=== PATIENT | male | born 1960 | race Caucasian/White ===

== ENCOUNTER 2022-04-23 11:57 | Inpatient (IN) | payer SELFPAY ==
[2022-04-23] VITALS (14 sets, daily range): BP systolic 88–139; BP diastolic 46–86; PULSE 72–100; RESP 16–20; TEMP 36.6–37.1; O2SAT 93–98; BMI 30.1; BMI 30.9
--- NOTE | 2022-04-23 12:29 | CT_ITS ---
PROCEDURE INFORMATION: Exam: CTA Abdomen and Pelvis With Contrast Exam date and time: 04/23/2022 1:30 PM Age: 62 years old Clinical indication: Abdominal pain; Patient HX: Epigastric pain sudden onset, nausea; Additional info: Epigastric/back pain, severe, sudden onset TECHNIQUE: Imaging protocol: Computed tomographic angiography of the abdomen and pelvis with contrast. 3D rendering (Not supervised by radiologist): MIP and/or 3D reconstructed images were created by the technologist. Radiation optimization: All CT scans at this facility use at least one of these dose optimization techniques: automated exposure control; mA and/or kV adjustment per patient size (includes targeted exams where dose is matched to clinical indication); or iterative reconstruction. Contrast material: ISOVUE 370; Contrast volume: 75 ml; Contrast route: INTRAVENOUS (IV); COMPARISON: No relevant prior studies available. FINDINGS: Lungs: Lung bases are unremarkable. Aorta: The aorta demonstrates moderate atherosclerotic calcification. Celiac trunk and mesenteric arteries: No occlusion or significant stenosis. Renal arteries: No occlusion or significant stenosis. Right iliac arteries: No occlusion or significant stenosis. Left iliac arteries: No occlusion or significant stenosis. Liver: There is a 7 cm right hepatic lobe cyst. Gallbladder and bile ducts: Gallbladder is distended without radiopaque cholelithiasis. No biliary ductal dilation. Pancreas: There is diffuse peripancreatic stranding. Mild amount of fluid is tracking along the anterior pararenal spaces bilaterally. No discrete peripancreatic collection. Spleen: No splenomegaly. Adrenal glands: The adrenal glands are normal. Kidneys and ureters: Nephrograms are symmetric. No nephrolithiasis or hydroureteronephrosis on either side. No solid lesions Stomach and bowel: No bowel wall thickening or distention. Appendix: A normal appendix is not well visualized. However, no evidence of inflammatory changes in the right lower quadrant to suggest acute appendicitis. Intraperitoneal space: Mild amount of free fluid tracking along the anterior pararenal spaces. Lymph nodes: No evidence of retroperitoneal or mesenteric lymphadenopathy. Urinary bladder: Urinary bladder is unremarkable. Reproductive: Prostate is unremarkable. Bones/joints: No acute fracture. Soft tissues: Unremarkable. IMPRESSION: Acute edematous interstitial pancreatitis
--- NOTE | 2022-04-23 12:32 | HMH.EDGENADL ---
Discharge Plan Disposition Patient Disposition: Admitted As Inpatient Condition: Good Clinical Impressions Clinical Impression: Acute alcoholic pancreatitis Qualifiers: Acute pancreatitis complication: no infection or necrosis Qualified Code(s): K85.20 - Alcohol induced acute pancreatitis without necrosis or infection Discharge ED Provider: Brianna Hale General Adult HPI General Chief complaint: Abdominal Pain Stated complaint: abd pain Time Seen by Provider: 04/23/22 12:12 Mode of Arrival: Ambulatory Source of Information: Patient and Spouse Limitations: No Limitations Description of Symptoms (Recalled from ER Triage Doc. by RN): pt comes in with c/o abdominal pain that began this morning. pt states that he drank his cofee around 0700 and then began having the pain. associated nausea, no v/d. pt states he drinks a few beers daily. not tender to palpation. History of Present Illness HPI narrative: This patient is a 62-year-old male with a history of daily alcohol use and hypertension presented to the emergency department for evaluation of epigastric abdominal pain. He states that he drinks morning coffee around 7:00 this morning and began having pain. It is severe, constant, and nothing makes it better or worse. It has gotten worse since then. He denies any vomiting or diarrhea, but he does admit to nausea. He denies any recent blood in his stools, dark tarry stools, or other concerns. He was well prior to this. He denies experiencing pain like this in the past. He denies any prior abdominal surgeries. Related Data Home Medications Medication Instructions Recorded Confirmed aspirin 81 mg tablet 81 mg PO DAILY heart health 04/23/22 04/23/22 atenolol 25 mg tablet 25 mg PO DAILY High blood pressure 04/23/22 04/23/22 lisinopril 10 mg tablet 10 mg PO DAILY High blood pressure 04/23/22 04/23/22 Allergies Allergy/AdvReac Type Severity Reaction Status Date / Time No Known Allergies Allergy Verified 04/23/22 12:23 [facility] Disclaimer: The information contained in this section may have been updated after the patient was seen, as this information can be updated by other users. Social History Smoking Status: Current every day smoker alcohol intake: current current occupational status: employed Travel in the last 8 weeks: None ROS Obtained: Yes All systems reviewed & no additional complaints except as documented 14 point review of systems obtained and negative except as mentioned in HPI. Physical Exam General General appearance: alert Comment: Uncomfortable appearing Head Head exam: atraumatic and normocephalic Eye Eye exam: Present normal appearance, PERRL and EOMI ENT ENT exam: Present normal exam, normal oropharynx and mucous membranes moist Neck Neck exam: Present normal inspection and full ROM Chest Chest inspection: Present normal inspection and symmetric chest wall rise; Absent tenderness Respiratory Respiratory exam: Present normal lung sounds bilaterally; Absent respiratory distress or wheezes Cardiovascular Cardiovascular exam: Present regular rate and normal rhythm Abdominal Exam Abdominal exam: Present soft, tenderness (Epigastric) and guarding; Absent distention or rebound Extremities Exam Extremities exam: Present normal inspection and full ROM Back Exam Back exam: Present normal inspection and full ROM; Absent tenderness Neurological Exam Neurological exam: Present alert and oriented X3 Psychiatric Psychiatric exam: Present normal affect and normal mood Skin Skin exam: Present warm and dry Medical Decision Making Medical Records Medical records reviewed: Yes I reviewed the patient's medical records. Abhijit Inquiry Pt receiving controlled substance: No Vital Signs: 04/23/22 12:14 04/23/22 12:30 04/23/22 13:00 Temperature 97.9 F Temperature Source Oral Pulse Rate 75 76 Pulse Rate [Left Radial] 77 Respirato
[2022-04-23 12:38] LABS: Basophils % 0.3 % (0.1-2.0); Eosinophils # 0.2 K/mm3 (0.0-0.4); Eosinophils % 1.1 % (0.1-12.0); Hematocrit 46.8 % (42.0-52.0); Lymphocytes # 0.8 K/mm3 (0.7-4.5); Lymphocytes % 4.9 % (10-50); Mean Corpuscular HGB Conc 34.1 g/dL (31.8-35.4); Mean Corpuscular Hemoglobin 31.9 pg (27.0-31.2); Mean Corpuscular Volume 93.4 fl (80-94); Mean Platelet Volume 9.3 fl (7.4-10.4); Monocytes # 0.5 K/mm3 (0.1-1.0); Monocytes % 3.2 % (1.7-9.3); Neutrophils # 14.2 K/mm3 (1.8-7.8); Neutrophils % 90.5 % (37.0-80.0); Platelet Count 271 K/mm3 (142-424); Red Blood Count 5.01 M/mm3 (4.60-6.20); Red Cell Distribution Width 12.9 % (11.5-17.5); White Blood Count 15.6 K/mm3 (4.8-10.8)
[2022-04-23 12:41] LABS: Chloride 103 mmol/L (98-107); MANUAL DIFFERENTIAL MANUAL DIFFERENTIAL (MANUAL DIFF); Sodium 139 mmol/L (136-145)
[2022-04-23 12:42] LABS: Potassium 4.2 mmoL/L (3.5-5.1)
[2022-04-23 12:44] LABS: Alanine Aminotransferase 123 U/L (12-78); Albumin Level 4.5 g/dl (3.5-5.0); Albumin/Globulin Ratio 1.4 (1.1-1.8); Alkaline Phosphatase 80 U/L (38-126); Anion Gap 12.2 mEq/L (5-15); Aspartate Amino Transferase 214 U/L (17-59); Bilirubin,Total 0.7 mg/dl (0.2-1.3); Blood Urea Nitrogen 9 mg/dl (9-20); Calcium 9.1 mg/dl (8.4-10.2); Carbon Dioxide 28 mmol/L (22.0-30.0); Creatinine Clearance Estimated 101 mL/min (50-200); Estimated Glomerular Filt Rate 114 ml/min (>60); GFR (African American) 137 ML/MIN (>60); Globulin 3.3 g/dL (1.3-3.2); Glucose 146 mg/dl (74-100); Total Protein,Serum 7.8 g/dl (6.3-8.2)
[2022-04-23 12:45] LABS: Lactic Acid 1.2 mmol/L (0.7-2.1)
[2022-04-23 12:54] LABS: Lymphocytes % 6 % (10-50); Neutrophils % 94 % (42-76); Platelet Estimate Normal; RBC Morphology Normal; Total Cells Counted 100
--- NOTE | 2022-04-23 13:48 | PC.NURSE ---
Latoya, YANN rounding on patient at this time. Pt given some ice chips
[2022-04-23 13:59] LABS: Lipase 10790 U/L (23-300)
--- NOTE | 2022-04-23 14:58 | PC.NURSE ---
YANN Klein rounding on patient, no needs at this time. Family at BS
--- NOTE | 2022-04-23 16:18 | EXP.HP ---
History of Present Illness *Admission Date: 04/23/22 *Reason for visit:: Pancreatitis *History of present illness: 62-year-old man who presents to the emergency department due to 3 days of progressively worsening abdominal pain. He is alcoholic and drinks daily for years he has been trying to quit for the last few weeks. Has reduced his drinking to maybe a few drinks every few days. 3 days ago abdominal pain thought it was GERD, some nausea. This morning it was severe in his abdomen. Not able to tolerate p.o. intake. Denies withdrawals, no shakes. Currently asymptomatic from an alcohol withdrawal standpoint. [facility] Disclaimer: The information contained in this section may have been updated after the patient was seen, as this information can be updated by other users. Social History Smoking Status: Current every day smoker alcohol intake: current current occupational status: employed Travel in the last 8 weeks: None Review of Systems Review of Systems Review of systems:: pertinent systems reviewed and negative unless documented below Constitutional Constitutional: Reports system reviewed and no additional complaints, except as documented ENT Ears, Nose, Mouth, and Throat: Reports system reviewed and no additional complaints, except as documented *Cardiovascular Cardiovascular: Reports system reviewed and no additional complaints, except as documented *Respiratory Respiratory: Reports system reviewed and no additional complaints, except as documented *Gastrointestinal Gastrointestinal: Reports system reviewed and no additional complaints, except as documented *Genitourinary Genitourinary: Reports system reviewed and no additional complaints, except as documented *Musculoskeletal Musculoskeletal: Reports system reviewed and no additional complaints, except as documented *Neurologic Neurologic: Reports system reviewed and no additional complaints, except as documented and Denies tremor(s) Meds Home Medications and Allergies Home Medications Medication Instructions Recorded Confirmed Type aspirin 81 mg tablet 81 mg PO DAILY heart health 04/23/22 04/23/22 History atenolol 25 mg tablet 25 mg PO DAILY High blood pressure 04/23/22 04/23/22 History lisinopril 10 mg tablet 10 mg PO DAILY High blood pressure 04/23/22 04/23/22 History New Prescriptions to Start Prescriptions: Allergies Allergy/AdvReac Type Severity Reaction Status Date / Time No Known Allergies Allergy Verified 04/23/22 12:23 Exam Data for Last 24 hours Vital signs and Labs for Last 24 Hours: Temp Pulse Resp BP Pulse Ox 97.9 F 82 18 88/46 L 94 L 04/23/22 12:14 04/23/22 16:00 04/23/22 15:30 04/23/22 16:00 04/23/22 16:00 Laboratory Results - last 24 hr 04/23/22 12:10: WBC 15.6 H, RBC 5.01, Hgb 16.0, Hct 46.8, MCV 93.4, MCH 31.9 H, MCHC 34.1, RDW 12.9, Plt Count 271, MPV 9.3, Neut % (Auto) 90.5 H, Lymph % (Auto) 4.9 L, [place] % (Auto) 3.2, Eos % (Auto) 1.1, Baso % (Auto) 0.3, Neut # (Auto) 14.2 H, Lymph # (Auto) 0.8, [place] # (Auto) 0.5, Eos # (Auto) 0.2, Baso # (Auto) 0.0, Total Counted 100, Neutrophils % (Manual) 94 H, Lymphocytes % (Manual) 6 L, Platelet Estimate Normal, RBC Morphology Normal 04/23/22 12:10: Sodium 139, Potassium 4.2, Chloride 103, Carbon Dioxide 28, Anion Gap 12.2, BUN 9, Creatinine 0.70, Estimated Creat Clear 101, Estimated GFR 114, Est GFR ( Amer) 137, Glucose 146 H, Calcium 9.1, Total Bilirubin 0.7, AST 214 H, ALT 123 H, Alkaline Phosphatase 80, Total Protein 7.8, Albumin 4.5, Globulin 3.3 H, Albumin/Globulin Ratio 1.4, Lipase 01202 H 04/23/22 12:10: Lactate 1.2 I & O for Last 24 hours: Intake & Output 04/20/22 04/21/22 04/22/22 04/23/22 23:59 23:59 23:59 23:59 Weight 95.254 kg Constitutional Constitutional: no acute distress, chronically ill appearing and cooperative *Routine HEENT Exam Head: Present normocephalic Eye: Present EOM
[2022-04-23 16:38] LABS: Coronavirus 19, PCR Not Detected (NotDetected); Influenza A, PCR Not Detected (NotDetected); Influenza B, PCR Not Detected (NotDetected)
--- NOTE | 2022-04-23 17:09 | PC.NURSE ---
Dr. Bell, Hospitalist at
--- NOTE | 2022-04-23 17:15 | PC.NURSE ---
attempted to call report to 2nd floor, was told nurse will return the call
--- NOTE | 2022-04-23 17:18 | PC.NURSE ---
report called to sugar michelle on second floor
--- NOTE | 2022-04-23 18:19 | PC.NURSE ---
arrived to floor by wheelchair from ED
[2022-04-24] VITALS (9 sets, daily range): BP systolic 124–146; BP diastolic 80–88; PULSE 89–105; RESP 17–20; TEMP 36.8–37; O2SAT 92–95; BMI 30.8
[2022-04-24 03:05] LABS: Microscopic, Urine URINE MICROSCOPIC (MICROSCOPIC)
[2022-04-24 03:11] LABS: Appearance,Urine CLEAR (Clear); Bilirubin,Urine Negative (Negative); Blood, Urine Negative (Negative); Glucose,Urine (UA) Negative (Negative); Ketones,Urine TRACE (Negative); Leukocyte Esterase,Urine Negative (Negative); Nitrate,Urine Negative (Negative); Protein,Urine Negative (Negative); Specific Gravity, Urine 1.015 (1.005-1.030); Urobilinogen,Urine 0.2 EU/dl (0.2)
[2022-04-24 03:13] LABS: Color,Urine Dark Yellow (Yellow)
[2022-04-24 03:36] LABS: Bacteria,Urine Trace /lpf; Mucus,Urine 1+ /lpf; WBC,Urine Occasional #/hpf (0-3)
--- NOTE | 2022-04-24 03:44 | PC.NURSE ---
PATIENT HAS RECEIVED MORHINE 4 MG IVP TWICE FOR EPIGASTRIC PAIN 7-11/27. NPO BOWEL SOUNDS VERY HYPOACTIVE.
[2022-04-24 07:20] LABS: Chloride 101 mmol/L (98-107); Sodium 133 mmol/L (136-145)
[2022-04-24 07:21] LABS: Potassium 3.7 mmoL/L (3.5-5.1)
[2022-04-24 07:23] LABS: Alanine Aminotransferase 67 U/L (12-78); Albumin Level 3.8 g/dl (3.5-5.0); Albumin/Globulin Ratio 1.4 (1.1-1.8); Alkaline Phosphatase 66 U/L (38-126); Anion Gap 10.7 mEq/L (5-15); Aspartate Amino Transferase 53 U/L (17-59); Bilirubin,Total 0.6 mg/dl (0.2-1.3); Blood Urea Nitrogen 8 mg/dl (9-20); Carbon Dioxide 25 mmol/L (22.0-30.0); Creatinine Clearance Estimated 103 mL/min (50-200); Estimated Glomerular Filt Rate 136 ml/min (>60); GFR (African American) 164 ML/MIN (>60); Globulin 2.7 g/dL (1.3-3.2); Phosphorous 3.2 mg/dl (2.5-4.5); Total Protein,Serum 6.5 g/dl (6.3-8.2)
[2022-04-24 07:24] LABS: Basophils % 0.2 % (0.1-2.0); Calcium 8.6 mg/dl (8.4-10.2); Eosinophils # 0.1 K/mm3 (0.0-0.4); Eosinophils % 0.5 % (0.1-12.0); Glucose 106 mg/dl (74-100); Hematocrit 42.9 % (42.0-52.0); Lymphocytes # 1.3 K/mm3 (0.7-4.5); Lymphocytes % 7.8 % (10-50); Magnesium 1.8 mg/dl (1.6-2.3); Mean Corpuscular HGB Conc 32.7 g/dL (31.8-35.4); Mean Corpuscular Volume 94.9 fl (80-94); Mean Platelet Volume 8.8 fl (7.4-10.4); Monocytes # 0.9 K/mm3 (0.1-1.0); Monocytes % 5.3 % (1.7-9.3); Neutrophils # 13.9 K/mm3 (1.8-7.8); Neutrophils % 86.2 % (37.0-80.0); Platelet Count 237 K/mm3 (142-424); Red Blood Count 4.52 M/mm3 (4.60-6.20); Red Cell Distribution Width 12.9 % (11.5-17.5); White Blood Count 16.2 K/mm3 (4.8-10.8)
[2022-04-24 07:26] LABS: MANUAL DIFFERENTIAL MANUAL DIFFERENTIAL (MANUAL DIFF)
[2022-04-24 08:53] LABS: Lymphocytes % 12 % (10-50); Monocytes % 1 % (2-9); Neutrophils % 87 % (42-76); Platelet Estimate Normal; RBC Morphology Normal; Total Cells Counted 100
--- NOTE | 2022-04-24 10:04 | SW/DCPLANNER ---
I received a referral on this patient regarding resources. I did speak with patient about drug/alcohol inpatient and outpatient resources. Patient stated that he is not interested in any resources at this time. I will follow up with patient prior to discharge to assist with any questions/needs. Discharge date is unknown at this time.
--- NOTE | 2022-04-24 11:55 | HMH.PHAINT1 ---
Pharmacy Intervention Comments: Home medication list verified via patient/family interview and outside pharmacy. -Radha Flynn, PharmD Candidate 2022
--- NOTE | 2022-04-24 14:17 | PC.NURSE ---
When attempt to administer lisinopril was made patient stated that he already took the lisinopril and atenolol that his brought from home at 1030 this morning. Patient given option to label home medication or take hospital supply in the future. Patient states he will take hospital supply. Education provided regarding importance of not taking home medications without notifying staff and proper labeling. Patient and state understanding.
--- NOTE | 2022-04-24 17:32 | EXP.ACUTE.PN ---
Subjective *Date: 04/24/22 *Time: 18:00 Interval history: No issues overnight. We will try clear liquids today. Some abdominal pain and nausea but otherwise well controlled. No concerns or complaints Medical Exam Vital signs and Labs for Last 24 Hours: Vital Signs Temp Pulse Pulse Resp BP BP Pulse Ox 04/24/22 16:00 90 04/24/22 15:38 98.6 F 92 H 18 137/85 95 04/24/22 12:00 100 H 04/24/22 11:44 98.3 F 92 H 18 139/80 93 L 04/24/22 08:00 90 04/24/22 08:00 98.3 F 100 H 17 142/86 H 92 L 04/24/22 04:00 98.3 F 100 H 18 146/88 H 93 L 04/24/22 04:00 100 H 04/24/22 03:39 97 H 04/23/22 20:00 100 H 04/24/22 00:00 98.6 F 105 H 20 145/88 H 92 L 04/23/22 20:00 93 L 04/23/22 20:00 98.7 F 99 H 18 139/85 93 L 04/23/22 18:26 98.0 F 80 16 116/67 93 L 04/23/22 18:20 98.2 F 88 16 108/64 L Intake and Output 04/24/22 04/24/22 04/24/22 07:59 15:59 23:59 Intake Total 1242 / 3282 120 / 3282 1920 / 3282 Output Total 1100 / 2600 1500 / 2600 0 / 2600 Balance 142 / 682 -1380 / 682 1920 / 682 Intake: Intake, Oral Amount 120 / 590 470 / 590 Intake, Total IV Amount 1242 / 2692 1450 / 2692 Ringers Solution,Lactated 1,000 1242 / 2692 1450 / 2692 ml @ 125 mls/hr IV .Q8H [facility] Rx #:[id number] Output: Output, Urine Amount 1100 / 2600 1500 / 2600 0 / 2600 Other: Number of Unmeasured Voids 1 1 Weight 97.778 kg Patient Weight 04/24/22 23:59 Weight 97.778 kg Laboratory Results - last 24 hr 04/23/22 16:30: SARS-CoV-2 (PCR) Not detected, Influenza A Untype (PCR) Not detected, Influenza Type B (PCR) Not detected 04/24/22 00:51: Urine Color Dark yellow, Urine Appearance Clear, Urine pH 6.0, Ur Specific Novice 1.015, Urine Protein Negative, Urine Glucose (UA) Negative, Urine Ketones Trace, Urine Blood Negative, Urine Nitrate Negative, Urine Bilirubin Negative, Urine Urobilinogen 0.2, Ur Leukocyte Esterase Negative, Urine WBC Occasional, Urine Bacteria Trace, Urine Mucus 1+ 04/24/22 06:50: WBC 16.2 H, RBC 4.52 L, Hgb 14.0 L D, Hct 42.9, MCV 94.9 H, MCH 31.0, MCHC 32.7, RDW 12.9, Plt Count 237, MPV 8.8, Neut % (Auto) 86.2 H, Lymph % (Auto) 7.8 L, [place] % (Auto) 5.3, Eos % (Auto) 0.5, Baso % (Auto) 0.2, Neut # (Auto) 13.9 H, Lymph # (Auto) 1.3, [place] # (Auto) 0.9, Eos # (Auto) 0.1, Baso # (Auto) 0.0, Total Counted 100, Neutrophils % (Manual) 87 H, Lymphocytes % (Manual) 12, Monocytes % (Manual) 1 L, Platelet Estimate Normal, RBC Morphology Normal 04/24/22 06:50: Sodium 133 L, Potassium 3.7, Chloride 101, Carbon Dioxide 25, Anion Gap 10.7, BUN 8 L, Creatinine 0.60 L, Estimated Creat Clear 103, Estimated GFR 136, Est GFR ( Amer) 164, Glucose 106 H D, Calcium 8.6, Phosphorus 3.2, Magnesium 1.8, Total Bilirubin 0.6, AST 53 D, ALT 67 D, Alkaline Phosphatase 66, Total Protein 6.5, Albumin 3.8 D, Globulin 2.7, Albumin/Globulin Ratio 1.4 I & O for Labs for Last 24 Hours: Intake & Output 04/21/22 04/22/22 04/23/22 04/24/22 23:59 23:59 23:59 23:59 Intake Total 3282 / 3282 Output Total 2600 / 2600 Balance 682 / 682 Weight 97.579 kg 97.778 kg Head: Present atraumatic and normocephalic Neck: Present normal inspection and full ROM GI: Present soft and tenderness Rectal (male): Present deferred (male): Present deferred Extremities: Present normal inspection Skin: Present intact and dry Assessment and Plan *Assessment and plan (1) Acute alcoholic pancreatitis: Status: Acute Qualifiers: Acute pancreatitis complication: no infection or necrosis Qualified Code(s): K85.20 - Alcohol induced acute pancreatitis without necrosis or infection Category: Medical Code(s): K85.20 - Alcohol induced acute pancreatitis without necrosis or infection (2) HTN (hypertension): Status: Acute Category: Medical Code(s): I10 - Essential (primary) hypertension (3
--- NOTE | 2022-04-24 18:37 | PC.NURSE ---
Pt up ad nell to BR. LR continued at 125 ml/hr. Morphine q 4 hrs for pain. Denies nausea. Tolerating clear liquid diet poorly. Has increased abdominal pain when attempting oral intake. at bedside throughout day.
[2022-04-25] VITALS: BP 135/85; PULSE 80; PULSE 90; RESP 18; TEMP 36.9; O2SAT 93
[2022-04-25 04:00] VITALS: BP 140/84; PULSE 97; RESP 18; TEMP 36.7; O2SAT 94; BMI 29.9
--- NOTE | 2022-04-25 04:14 | PC.NURSE ---
PATIENT CONTINUES TO C/O EPIGASTRIC PAIN. MEDICATED TWICE THUS FAR WITH MORPHINE 4 MG WHICH GIVES GOOD RELIEF.
[2022-04-25 07:04] LABS: Basophils % 0.2 % (0.1-2.0); Eosinophils # 0.2 K/mm3 (0.0-0.4); Hemoglobin 13.2 g/dL (14.1-18.0); Lymphocytes # 1.3 K/mm3 (0.7-4.5); Lymphocytes % 8.8 % (10-50); Mean Corpuscular HGB Conc 33.1 g/dL (31.8-35.4); Mean Corpuscular Hemoglobin 31.3 pg (27.0-31.2); Mean Corpuscular Volume 94.5 fl (80-94); Mean Platelet Volume 8.9 fl (7.4-10.4); Monocytes # 0.9 K/mm3 (0.1-1.0); Monocytes % 6.3 % (1.7-9.3); Neutrophils # 12.4 K/mm3 (1.8-7.8); Neutrophils % 83.6 % (37.0-80.0); Platelet Count 212 K/mm3 (142-424); Red Blood Count 4.24 M/mm3 (4.60-6.20); Red Cell Distribution Width 12.9 % (11.5-17.5); White Blood Count 14.9 K/mm3 (4.8-10.8)
[2022-04-25 07:15] LABS: Alanine Aminotransferase 42 U/L (12-78); Albumin Level 3.7 g/dl (3.5-5.0); Albumin/Globulin Ratio 1.3 (1.1-1.8); Alkaline Phosphatase 60 U/L (38-126); Anion Gap 8.8 mEq/L (5-15); Aspartate Amino Transferase 31 U/L (17-59); Bilirubin,Total 0.6 mg/dl (0.2-1.3); Blood Urea Nitrogen 6 mg/dl (9-20); Calcium 8.5 mg/dl (8.4-10.2); Carbon Dioxide 28 mmol/L (22.0-30.0); Chloride 103 mmol/L (98-107); Creatinine Clearance Estimated 100 mL/min (50-200); Estimated Glomerular Filt Rate 114 ml/min (>60); GFR (African American) 137 ML/MIN (>60); Globulin 2.8 g/dL (1.3-3.2); Glucose 98 mg/dl (74-100); Potassium 3.8 mmoL/L (3.5-5.1); Sodium 136 mmol/L (136-145); Total Protein,Serum 6.5 g/dl (6.3-8.2)
[2022-04-25 07:51] LABS: Lipase 402 U/L (23-300)
[2022-04-25 08:00] VITALS: BP 144/89; PULSE 98; RESP 16; TEMP 36.8; O2SAT 95; O2SAT 97
--- NOTE | 2022-04-25 10:43 | DIET.NUTRFU ---
upgraded to full liquids during rounds this morning and then ordered low fat diet for lunch plan to discharge later today if tolerates diet advancement
[2022-04-25 12:00] VITALS: BP 119/72; PULSE 49; RESP 16; TEMP 36.9; O2SAT 98
--- NOTE | 2022-04-25 14:44 | EXP.DC.SUM ---
General Admission date:: 04/23/22 HPI HPI HPI: 62-year-old man who presents to the emergency department due to 3 days of progressively worsening abdominal pain. He is alcoholic and drinks daily for years he has been trying to quit for the last few weeks. Has reduced his drinking to maybe a few drinks every few days. 3 days ago abdominal pain thought it was GERD, some nausea. This morning it was severe in his abdomen. Not able to tolerate p.o. intake. Denies withdrawals, no shakes. Currently asymptomatic from an alcohol withdrawal standpoint. Hospital Course Hospital Course Hospital Course: Admitted with alcohol pancreatitis. Received IV antiemetics and opioids. Slowly advance diet. Day of discharge was able to tolerate diet with p.o. medication support. Advised and counseled on alcohol cessation. Exam Data for Last 24 hours Vital signs and Labs for Last 24 Hours: Temp Pulse Resp BP Pulse Ox 98.4 F 49 L 16 119/72 98 04/25/22 12:00 04/25/22 12:00 04/25/22 12:00 04/25/22 12:00 04/25/22 12:00 Laboratory Results - last 24 hr 04/25/22 06:47: Lipase 402 H 04/25/22 06:47: WBC 14.9 H, RBC 4.24 L, Hgb 13.2 L, Hct 40.0 L, MCV 94.5 H, MCH 31.3 H, MCHC 33.1, RDW 12.9, Plt Count 212, MPV 8.9, Neut % (Auto) 83.6 H, Lymph % (Auto) 8.8 L, [place] % (Auto) 6.3, Eos % (Auto) 1.0, Baso % (Auto) 0.2, Neut # (Auto) 12.4 H, Lymph # (Auto) 1.3, [place] # (Auto) 0.9, Eos # (Auto) 0.2, Baso # (Auto) 0.0 04/25/22 06:47: Sodium 136, Potassium 3.8, Chloride 103, Carbon Dioxide 28, Anion Gap 8.8, BUN 6 L, Creatinine 0.70, Estimated Creat Clear 100, Estimated GFR 114, Est GFR ( Amer) 137, Glucose 98, Calcium 8.5, Total Bilirubin 0.6, AST 31 D, ALT 42 D, Alkaline Phosphatase 60, Total Protein 6.5, Albumin 3.7, Globulin 2.8, Albumin/Globulin Ratio 1.3 I & O for Last 24 hours: Intake & Output 04/22/22 04/23/22 04/24/22 04/25/22 23:59 23:59 23:59 23:59 Intake Total 3282 / 3282 2215 / 2215 Output Total 2600 / 2600 Balance 682 / 682 2215 / 2215 Weight 97.579 kg 97.778 kg 94.858 kg Results Data Completed and Pending Labs on day of discharge: Labs from last 24 hours 04/25/22 04/25/22 04/25/22 06:47 06:47 06:47 WBC 14.9 H RBC 4.24 L Hgb 13.2 L Hct 40.0 L MCV 94.5 H MCH 31.3 H MCHC 33.1 RDW 12.9 Plt Count 212 MPV 8.9 Neut % (Auto) 83.6 H Lymph % (Auto) 8.8 L [place] % (Auto) 6.3 Eos % (Auto) 1.0 Baso % (Auto) 0.2 Neut # (Auto) 12.4 H Lymph # (Auto) 1.3 [place] # (Auto) 0.9 Eos # (Auto) 0.2 Baso # (Auto) 0.0 Sodium 136 Potassium 3.8 Chloride 103 Carbon Dioxide 28 Anion Gap 8.8 BUN 6 L Creatinine 0.70 Estimated Creat Clear 100 Estimated GFR 114 Est GFR ( Amer) 137 Glucose 98 Calcium 8.5 Total Bilirubin 0.6 AST 31 D ALT 42 D Alkaline Phosphatase 60 Total Protein 6.5 Albumin 3.7 Globulin 2.8 Albumin/Globulin Ratio 1.3 Lipase 402 H DS: Diagnosis Discharge Diagnosis (1) Acute alcoholic pancreatitis: Status: Acute (2) HTN (hypertension): Status: Acute (3) Atherosclerosis of aorta: Status: Acute Meds Home Medications and Allergies Home Medications Medication Instructions Recorded Confirmed Type aspirin 81 mg tablet 81 mg PO DAILY heart health 04/23/22 04/23/22 History atenolol 25 mg tablet 25 mg PO DAILY High blood pressure 04/23/22 04/23/22 History lisinopril 10 mg tablet 10 mg PO DAILY High blood pressure 04/23/22 04/23/22 History ondansetron HCl 4 mg tablet 4 mg PO Q8H PRN nausea and 04/25/22 Rx vomiting #30 tabs oxycodone-acetaminophen 10 mg-325 1 ea PO Q6HP PRN Moderate To 04/25/22 Rx mg tablet Severe Pain 3 days #12 tabs New Prescriptions to Start Prescriptions: oxycodone-acetaminophen Quintin Bell ondansetron HCl Quintin Bell Allergies Allergy/
--- NOTE | 2022-04-25 15:17 | HMH.PHAINT1 ---
Pharmacy Intervention Comments: DISCHARGE MEDICATION COUNSELING PROVIDED. DISCUSSED THE FOLLOWING NEW PRESCRIPTIONS: -ZOFRAN (FOR NAUSEA/VOMITING, EVERY 8 HOURS NEEDED, MAY CAUSE CONSTIPATION, HEADACHE) -PERCOCET (FOR MODERATE TO SEVERE PAIN, EVERY 6 HOURS NEEDED, MAY CAUSE SEDATION, CONSTIPATION, UPSET STOMACH) PATIENT AND ASKED ME IF HE WOULD/COULD GET A DOSE OF PAIN MEDICINE BEFORE LEAVING SHE WOULDN'T BE ABLE TO GET UP TO THE PHARMACY TO PICK IT UP BEFORE THE NEXT DOSE WAS DUE. I ADVISED THEM TO ASK HIS NURSE TO SEE IF HE COULD GET SOMETHING BEFORE HE LEAVES. PATIENT VERBALIZED NO ADDITIONAL QUESTIONS AT THIS TIME.
--- NOTE | 2022-04-29 14:13 | CARE MANAGER ---
Spoke with patient for post-discharge phone interview, patient states that he has his medications and has no issues at this time.
== END 2022-04-25 15:28 | disposition home or self-care (01) | DRG 440 ==
LOC: ER 15:48 → 2ND 16:24
PROVIDERS: Nurse Practitioner Family; Admitting Provider Student in an Organized Health Care Education/Training Program; Emergency Provider Emergency Medicine; Visit Provider Student in an Organized Health Care Education/Training Program
DX: K85.20 Alcohol induced acute pancreatitis without necrosis or infection (principal); I10 Essential (primary) hypertension; F17.210 Nicotine dependence, cigarettes, uncomplicated; I70.0 Atherosclerosis of aorta; F10.20 Alcohol dependence, uncomplicated
CPT/HCPCS: 36415; 74174; 80053; 81001; 83605; 83690; 83735; 84100; 85007; 85025; 99285; C9803; J2405; Q9967; U0003; U0005

== ENCOUNTER 2024-06-21 11:42 | Outpatient (CLI) | payer OTHER, SELFPAY ==
--- NOTE | 2024-06-21 11:50 | XR_ITS ---
FINAL REPORT CLINICAL HISTORY: PAIN OF RIGHT UPPER EXTRMITY LOW BACK PAIN COMPARISON: None FINDINGS: CERVICAL SPINE Five views of the cervical spine were obtained. There is no fracture present. There is spondylolisthesis and degenerative disc disease which is most pronounced at C5 through C7. There is normal alignment. Bony neural foraminal narrowing is seen at C4-5 and C5-6 bilaterally. IMPRESSION: Moderate degenerative changes with lower cervical neural foraminal narrowing. LUMBOSACRAL SPINE Five views of the lumbosacral spine were obtained. There is no fracture present. Mild S-shaped scoliosis is noted. There is no subluxation. Moderate diffuse degenerative disc disease and facet disease pattern is noted. There is probable cervical stenosis in the lower lumbar spine. IMPRESSION: Significant degenerative changes. MRI follow-up may be considered. Reviewed, Interpreted and Dictated by Janay Abraham MD Transcribed by Jordana Allen Authenticated and [facility][1]
== END 2024-06-21 23:59 | disposition home or self-care (01) ==
LOC: RAD 11:45
PROVIDERS: PCP Family Medicine; Visit Provider Family Medicine
DX: M79.601 Pain in right arm (principal); M54.50 Low back pain, unspecified
CPT/HCPCS: 72084

== ENCOUNTER 2024-08-04 08:41 | Outpatient (CLI) | payer OTHER, SELFPAY ==
--- OUTSIDE RECORDS SUMMARY | 2024-08-04 08:43 | XMS_ITS ---
Author Organization Unknown Vital Signs BpStanding BpSitting BpSupine Date Temperature HeartRate Weight Hei ght Spo2 Respiration Bmi HeadCircumference FieldCount TimeRecorded NeckCircumferen ce WaistCircumference Pulse 116/74 02/11 00:00 :00 98.1 81 205,0 5,10 29.4 1 6 07/26/2024 09:00:00 108/80 07/07 00:00 :00 97.8 76 209,0 5,10 29.9 9 6 07/26/2024 09:45:00
--- NOTE | 2024-08-04 08:44 | MR_ITS ---
FINAL REPORT CLINICAL HISTORY: LBP/DEGENERATION/LUMBAR FACET ARTHROPATHY. NO INJURY OR TRAUMA. COMPARISON: 04/23/2022 FINDINGS: Multiplanar MR imaging of the lumbar spine was performed without contrast. On the sagittal T2-weighted images, there is abnormal decreased signal throughout the lumbar discs. There is a prominent S1-S2 disc. The vertebrae are of normal height. The vertebral alignment is normal. T12-L1: There is no significant canal stenosis or neural foraminal narrowing. L1-2: There is no significant canal stenosis or neural foraminal narrowing. L2-3: A moderate annular bulge is present with a left posterolateral disc protrusion, and moderate left neural foraminal narrowing, best seen on image 11 of series 2. L3-4: There is a moderate diffuse disc bulge, with moderate bilateral facet hypertrophy. There is moderate to high-grade right and moderate left neural foraminal narrowing. L4-5: There is an annular bulge with facet hypertrophy, greater on the right than on the left, with moderate to severe right and mild left neural foraminal narrowing. L5-S1: A mild annular bulge is present with endplate hypertrophy greater on the left than on the right. There is moderate to high-grade left and mild to moderate right neural foraminal narrowing. IMPRESSION: Multilevel lumbar degenerative change is present, with neural foraminal narrowing more severe on the left at the L2-3 and L5-S1 levels, and more severe on the right at the L3-4 and L4-5 levels. Reviewed, Interpreted and Dictated by Carson Reis MD Transcribed by Eri Espana Authenticated and [facility]
== END 2024-08-04 23:59 | disposition home or self-care (01) ==
LOC: RAD 08:41
PROVIDERS: PCP Family Medicine; Visit Provider Family Medicine
DX: M47.816 Spondylosis without myelopathy or radiculopathy, lumbar region (principal); M48.061 Spinal stenosis, lumbar region without neurogenic claudication; M51.360 Other intervertebral disc degeneration, lumbar region with discogenic back pain only
CPT/HCPCS: 72148

== ENCOUNTER 2024-08-31 12:50 | Day surgery (SDC) | payer OTHER, SELFPAY ==
[2024-08-30 12:40] VITALS: BMI 29.4
[2024-08-31 13:22] VITALS: BP 127/79; PULSE 93; RESP 16; TEMP 36.4; O2SAT 100
[2024-08-31] MEDS: LACTATED RINGERS 1000ML 1,000 ML 50 ML IV (13:34)
--- NOTE | 2024-08-31 13:58 | EXP.ANES.CKL ---
[facility] Disclaimer: The information contained in this section may have been updated after the patient was seen, as this information can be updated by other users. Medical History Hyperlipidemia Hypertension Surgical History No significant past surgical history Family History Other Dementia Diabetes Family history of cancer Family history of diabetes mellitus type II Social History (Updated 08/31/24 @ 13:31 by Jolene Webster RN) Smoking Status: Current every day smoker alcohol intake: current substance use type: denies use current occupational status: retired Travel in the last 8 weeks?: None caffeine: Yes [facility] Anesthesia Checklist Patient Identification Patient Identification: Verbal (Name & ) Structural Data Admitted From: Home Planned Operative Procedure/s: colonoscopy Consent for Planned Operative Procedure(s) Verified: Yes NPO Status Verified Time NPO: 00:00 Airway Assessment Mallampati Score:: Class II C-Spine Mobility Assessed: Yes TMJ Mobility Assessed: Yes Dentition: Poor Dentition Neurological Assessment Level of Consciousness: Awake, Alert and Appropriate Anesthesia Plan Anesthesia Risk discussed: Yes Anesthesia Plan: Verified ASA Class: II Anesthesia Type: MAC
--- NOTE | 2024-08-31 14:00 | P.HP_ITS ---
History of Present Illness *Admission Date: 08/31/24 *Reason for visit:: Surveillance-history of colon polyps *History of present illness: Mr. Tucker is a 64-year-old gentleman who is here for screening colonoscopy. The patient did have a colonoscopy 8 years ago in [place] and had polyps removed (unspecified) the examination is deemed medically necessary for surveillance colonoscopy. The patient has been seen, interviewed and examined prior to the procedure by both myself and the anesthesia provider. [facility] Disclaimer: The information contained in this section may have been updated after the patient was seen, as this information can be updated by other users. Medical History (Updated 08/31/24 @ 14:11 by Rakesh Robertson II, MD) Hyperlipidemia Hypertension Surgical History No significant past surgical history Family History Other Dementia Diabetes Family history of cancer Family history of diabetes mellitus type II Social History (Updated 08/31/24 @ 13:59 by Richard Camarillo CRNA) Smoking Status: Current every day smoker alcohol intake: current substance use type: denies use current occupational status: retired Travel in the last 8 weeks?: None caffeine: Yes Have you lived/traveled outside US in past 30 days?: No Contact w/someone who lives/traveled outside US past 30 days?: No Exposure to someone with infectious disease in past 14 days?: No Do you have a fever (greater than 100.4 F or 38 C)?: No Have you tested positive for COVID-19?: No Exposed to someone with COVID-19 in past 14 days?: No Do you have a sore throat?: No Do you have a cough?: No Do you have any weakness?: No Are you experiencing any nausea/vomitting?: No Do you have any diarrhea?: No Are you experiencing any unusual bleeding?: No Do you have any muscle aches/pain?: No Do you have any abdominal pain?: No Are you experiencing loss of taste or smell?: No Other Medical History Have you received the Flu Vaccine for this season: No Have you received the Pneumonia Vaccine: No Review of Systems Review of Systems Review of systems (narrative): Negative *Cardiovascular Comments: Negative *Gastrointestinal Comments: Negative *Genitourinary Comments: Negative *Musculoskeletal Comments: Negative *Neurologic Comments: Negative Meds Home Medications and Allergies Home Medications ?Medication ?Instructions ?Recorded ?Confirmed ?Type atenolol 25 mg tablet 25 mg PO DAILY High blood pressure 04/23/22 08/31/24 History lisinopril 10 mg tablet 10 mg PO DAILY High blood pressure 04/23/22 08/31/24 History ondansetron HCl 4 mg tablet 4 mg PO Q8H PRN nausea and 04/25/22 08/31/24 Rx vomiting #30 tabs atorvastatin 40 mg tablet 40 mg PO HS 08/30/24 08/31/24 History New Prescriptions to Start Prescriptions: Allergies Allergy/AdvReac Type Severity Reaction Status Date / Time No Known Allergies Allergy Verified 08/31/24 13:25 Exam Data for Last 24 hours Vital signs and Labs for Last 24 Hours: Temp Pulse Resp BP Pulse Ox O2 Del Method 97.5 F L 93 H 16 127/79 100 Room Air 08/31/24 13:22 08/31/24 13:22 08/31/24 13:22 08/31/24 13:22 08/31/24 13:22 08/31/24 13:22 I & O for Last 24 hours: Intake & Output 08/28/24 08/29/24 08/30/24 08/31/24 23:59 23:59 23:59 23:59 Weight 205 lb *Routine HEENT Exam Head: Present normocephalic Eye: Present EOMI and PERRL ENT: Present mucous membranes moist *Routine Neck Exam Neck: Present supple *Routine Respiratory Exam Respiratory: Present CTA bilaterally *Routine Cardiovascular Exam Cardiovascular: Present RRR *Routine Abdominal Exam Abdominal: Present soft and normoactive bowel sounds; Absent tenderness *Routine Rectal Exam Rectal:: deferred *Routine Genitalia Exam Genitalia:: deferred *Routine Extremities Exam Extremities: Absent cyanosis, clubbing or edema *Routine Skin Exam Skin: Present warm; Absent rash *Routine Neurological Exam Neurological: Present alert and oriented X3 Assessment and Plan *Assessment and plan (1) Personal history of colon polyps, unspecified: Status: Acute Category: Medical Code(s): Z86.0100 - Personal history of colon polyps, unspecified Plan A/P: 1. Screening/surveillance colonoscopy secondary to history of colon polyps (unspecified) is the preprocedural diagnosis. The patient will be anesthetized/sedated using MAC sedation. The patient has been seen and examined. Cardiac and lung assessment prior to the examination is stable. Proceed with planned surveillance colonoscopy.
--- NOTE | 2024-08-31 14:11 | P.PCN_ITS ---
[facility] Procedure Note Date: 08/31/24 Time: 14:27 Procedure Note:: Colonoscopy Procedure Report: Colonoscopy with cold snare polypectomy Endoscopist: Rakesh Robertson II, MD Referring physician: Carl Lee MD Date of Procedure: August 31, 2024 Equipment: Olympus 190 variable stiffness pediatric colonoscope Sedation: MAC sedation Indication: Mr. Tucker is a 64-year-old gentleman who is here for follow-up screening/surveillance colonoscopy. He did have a colonoscopy 8 years ago (in [place]) and had colon polyps removed. He was told to follow-up with colonoscopy in 3 to 5 years. The patient reports no abdominal pain, weight loss, change in his bowel habits or rectal bleeding. He reports no family history of colon cancer. Procedure: Prior to the procedure, a history and physical exam was performed, and patient's medications and allergies were reviewed. The risks, benefits and alternatives of the sedation and procedure were discussed with the patient. All questions were answered and informed consent was obtained. The patient was brought to the procedure room. Patient identification and proposed procedure were verified by the physician and the nurse. The patient was placed in a left lateral decubitus position and the scope was passed under direct vision. Throughout the procedure, the patient's blood pressure, pulse, and oxygen saturations were monitored continuously. The colonoscopy was accomplished without difficulty. The patient tolerated the procedure well. Findings: On digital rectal examination there was normal rectal tone. There were no external hemorrhoids. The colonoscope was introduced through the anal canal to the rectum and advanced to the cecum. The ileocecal valve and appendiceal orifice were identified. The scope was advanced a short distance into the ileum which appeared grossly normal. The scope was then withdrawn into the colon. There were 3 colon polyps (ascending x 1 (10 mm), transverse x 1 (4 mm) and descending x 1 (6 mm)). These were all removed via cold snare polypectomy. The cecum, ascending, transverse, descending, sigmoid and rectum were grossly normal. There were no mucosal abnormalities identified. Upon retroflexion within the rectum there were grade 1-2 internal hemorrhoids. The preparation was fair throughout with [place] Preparation Score of 7 out of 9. The cecal time was 12 minutes. Impression: 1. Colonic polyps x 3 2. Grade 1-2 internal hemorrhoids Plan: I will follow-up the polyp histology and recommend repeat surveillance colonoscopy again in 5 years based upon the pathology.
[2024-08-31 14:13] VITALS: O2SAT 95
[2024-08-31 14:32] VITALS: BP 96/67; PULSE 74; RESP 16; TEMP 36.6; O2SAT 97
[2024-08-31 14:42] VITALS: BP 93/62; PULSE 71; RESP 16; O2SAT 98
[2024-08-31 14:52] VITALS: BP 108/70; PULSE 76; RESP 16; O2SAT 98
== END 2024-08-31 15:01 | disposition home or self-care (01) ==
PROVIDERS: PCP Family Medicine; Visit Provider Internal Medicine Gastroenterology
PROC: 0DJD8ZZ Inspection of Lower Intestinal Tract, Via Natural or Artificial Opening Endoscopic (ICD-10-PCS; CPT 45378; principal; 2024-08-31 14:30)
DX: Z12.11 Encounter for screening for malignant neoplasm of colon (principal); Z86.0100 Personal history of colon polyps, unspecified; D12.2 Benign neoplasm of ascending colon; D12.3 Benign neoplasm of transverse colon; D12.4 Benign neoplasm of descending colon; K64.8 Other hemorrhoids
CPT/HCPCS: 45385; 88305; J7120

== ENCOUNTER 2024-10-18 11:08 | Outpatient (POV) | payer OTHER, SELFPAY ==
--- OUTSIDE RECORDS SUMMARY | 2024-07-18 05:00 | XMS_ITS ---
Author Organization [facility] Address [address]10 [facility] 36 [facility] [address] [phone] Care Team Providers Care Inseam Leveler Name Role Phone Rosa Carl Unavailable [phone] Allergies No Known Allergies REASON FOR VISIT [...] 07/18/2024 Encounters Encounter Location Date Provider Diagnosis [facility] [address] [facility] [address] [phone] 07/18/2024 Calr Lee Right cervical radiculopathy M54.12 ; Cervical [...] of tolerance and drug dependence. Refer to [facility] Controlled Substance Agreement. 07/18/2024 Cervical disc [...] of tolerance and drug dependence. Refer to [facility] Controlled Substance Agreement. Next Appt Details Follow Up: via phone to repo rt test results, 4 Months, Reason: Progress Notes * JE GUERRADOB:[birth year] (64 yo M)Acc No.[id number]:07/18/2024 Patient: Ashwini JE WALDRON Provider: Seymour Lee M.D. :1960 A ge:64 Y S ex:Male Date:07/18/2024 Address[place] Subjective: * Chief Complaints: * 1 . [...] * Images: Billing Information: * Visit Code: 55394 Office Visit, Est Pt., Level 4. * Procedure Codes: G2211 Complex e/m visit add on. 3074F SYST BP LT 130 MM HG. 3079F DIAST BP 80-89 MM HG. * Electronic signature of Ariana Lee MD on 10/18/2024 at 11:11 AM EDT Sign off status: Pending * Provider: Seymour Lee M.D. Date: 0 07/18/2024 Generated for Smita carrasquillo/Annamaria/Linda on: 0 10/18/2024 11:11 AM EDT History and Physical Notes * [...]
--- OUTSIDE RECORDS SUMMARY | 2024-08-23 06:45 | XMS_ITS ---
Author Organization [facility] Address 1210 [facility] [address] [place] [phone] Care Team Providers Care Office Machine Installer Name Role Phone Carl Lee Unavailable [phone] REASON FOR VISIT GO OVER TEST RESULTS Encounters Encounter Location Date Provider Diagnosis [facility] [address] [place] [phone] 08/23/2024 Carl Lee Plan Of Treatment No Information Progress Notes * JE GUERRADOB:[birth year] (64 yo M)Acc No.[id number]:08/23/2024 Progress Notes Patient: JE CARNEY Provider: Seymour Lee M.D. :1960 A ge:64 Y S ex:Male Date:08/23/2024 Address:[address] [place] [address] [facility] Subjective: * Chief Complaints: * 1 . GO OVER TEST RESULTS. * Medical History: Objective: * Vitals: Assessment: Plan: * Treatment: * Images: Billing Information: * Visit Code: * Procedure Codes: * Electronic signature of Ariana Lee MD on 10/18/2024 at 11:11 AM EDT Sign off status: Pending * Provider: Seymour Lee M.D. Date: 08/23/2024 Generated for Smita carrasquillo/Annamaria/eTranmari on: 10/18/2024 11:11 AM EDT
--- OUTSIDE RECORDS SUMMARY | 2024-09-29 06:30 | XMS_ITS ---
Author Organization [facility] Address [address] [facility] [address] [place] [id number] Care Team Providers Care Making Department Preparer Name Role Phone Rosa Carl Unavailable [phone] Allergies No Known Allergies Reason For Referral [...] [place] 2024 11:29:42 AM > faxed to [facility] Pain Management Referral Priority Routine REASON [...] [address] [place], [place] [id number] 09/29/2024 Carl Lee Low back pain, unspecified [...] Notes * CHARLIEJEDOB:[birth year] (64 yo M)Acc No.[id number]:09/29/2024 Progress Notes Patient: JE CARNEY Provider: Seymour Lee M.D. :1960 A ge:64 Y S ex:Male Date:09/29/2024 Address:[address] [place] [address] Subjective: * Chief Complaints: * 1 . [...] * Images: Billing Information: * Visit Code: 14695 Office Visit, Est Pt., Level 3. * [...] 09/29/2024 Generated for Smita carrasquillo/Annamaria/Singhitting on: 0 10/18/2024 11:11 AM EDT History [...]
--- OUTSIDE RECORDS SUMMARY | 2024-10-18 11:11 | XMS_ITS | Encounter Summary ---
Author Organization [facility] Address [address] [place] [address] Care Team Providers Care Extractor Loader And Unloader Name Role Phone Maryjane Rhoades MD Primary Care Provider Unava ilable Reason for Visit * Reason Comments Other Encounter Details Date Type Department Care Team (Late st Contact Info) Description 11/11/2014 Refill [facility] Medicine [address] [place] [id number] Maryjane Rhoades MD Other Social History Tobacco Use Types Packs/Day Years Used Date Smoking Tobacco: Every Day Cigarettes 1 36 Smokeless Tobacco: Never Alcohol Use Standard Drinks/Week Comments Not Asked 0 (1 standard drink = 0.6 oz pur e alcohol) Sex and Gender Information Value Date Recorded Sex Assigned at Not on file Legal Sex Male 9:06 PM EST Gender Identity Not on file Sexual Orientation Not on file documented as of this encounter Plan of Treatment Not on file documented as of this encounter Visit Diagnoses Not on filedocumented in this encounter Care Teams Extractor Loader And Unloader Relationship Specialty Start Date End Date Maryjane Rhoades MD PCP - General Family Medicine 12/06/13 02/18/17 documented as of this encounter
--- OUTSIDE RECORDS SUMMARY | 2024-10-18 11:11 | XMS_ITS | Clinical Summary ---
Author Organization [facility] Address [address] [place] [address] Care Team Providers Care Reactor Operator Name Role Phone Maryjane Rhoades MD Primary Care Provider Radha vailable Medications atenolol (TENORMIN) 25 MG TABS Take 1 tablet by mouth daily. 30 tablet 0 11/25/2013 Active Active Problems No known active problems Social History Tobacco Use Types Packs/Day Years Used Date Smoking Tobacco: Every Day Cigarettes Alcohol Use Standard Drinks/Week Comments Yes 0 (1 standard drink = 0.6 oz pur e alcohol) 12 pack beer day + Sex and Gender Information Value Date Recorded Sex Assigned at Not on file Legal Sex Male 8:28 PM EDT Gender Identity Not on file Sexual Orientation Not on file Last Filed Vital Signs Vital Sign Reading Time Taken Comments Blood Pressure 140/99 11/25/2013 9:15 AM EDT Pulse 92 11/25/2013 9:15 AM EDT Temperature 36.9 C (98.4 F) 11/25/2013 7:54 AM EDT Respiratory Rate 23 11/25/2013 9:15 AM EDT Oxygen Saturation 99% 11/25/2013 7:54 AM EDT Inhaled Oxygen Concentration - - Weight - - Height - - Body Mass Index - - Plan of Treatment Health Maintenance Due Date Last Done Comments Hepatitis C Screening 1960 Abdominal Aortic Aneurysm Screening 1960 DTap,Tdap,and Td (1 - Tdap) 1969 Colonoscopy 2003 PSA YEARLY 02/13/2008 Pneumococcal 50+ (1 of 1 - PCV) 02/13/2008 Shingrix (#1) 02/13/2008 Influenza Vaccine (#1) 2024 RSV Vaccine (60+ or ) (1 - 1-dose 75+ series) 2033 HPV Aged Out No longer eligi ble based on patient's age to complete this topic Meningococcal conjugate talisha nt 4 (MCV4) Aged Out No longer eligible b ased on patient's age to complete this topic RSV Immunization (<20 months) Aged Out No longer eligible based on patient's age to complete this topic Care Teams Reactor Operator Relationship Specialty Start Date End Date Maryjane Rhoades MD PCP - General Family Medicine 11/25/13
--- OUTSIDE RECORDS SUMMARY | 2024-10-18 11:11 | XMS_ITS | Encounter Summary ---
Author Organization [facility] Address [address] [place] [address] Care Team Providers Care Promotional Model Name Role Phone Maryjane Rhoades MD Primary Care Provider Unava ilable Reason for Visit * Reason Comments Medication Refill Encounter Details Date Type Department Care Team (Late st Contact Info) Description 05/09/2016 Refill [facility] Medicine [address] [place] [address] Maryjane Rhoades MD Medication Refill Social History Tobacco Use Types Packs/Day Years Used Date Smoking Tobacco: Every Day Cigarettes 1 37 Smokeless Tobacco: Never Alcohol Use Standard Drinks/Week Comments Yes 5 (1 standard drink = 0.6 oz pur [...] on filedocumented in this encounter Care Teams Promotional Model Relationship Specialty Start Date End Date Maryjane Rhoades MD PCP - General Family Medicine 12/06/13 02/18/17 documented as of this encounter
--- OUTSIDE RECORDS SUMMARY | 2024-10-18 11:11 | XMS_ITS | Encounter Summary ---
Author Organization [facility] Address [address] [place] [address] Care Team Providers Care Operations Leader Name Role Phone Maryjane Rhoades MD Primary Care Provider Unava ilable Reason for Visit * Reason Comments Other Encounter Details Date Type Department Care Team (Late st Contact Info) Description 09/10/2014 Refill [facility] Medicine [address] [place] [address] Maryjane Rhaodes MD Other Social History Tobacco Use Types [...] on filedocumented in this encounter Care Teams Operations Leader Relationship Specialty Start Date End Date Maryjane Rhoades MD PCP - General Family Medicine 12/06/13 02/18/17 documented as of this encounter
--- OUTSIDE RECORDS SUMMARY | 2024-10-18 11:11 | XMS_ITS | Encounter Summary ---
Author Organization [facility] Address [address] [place] [address] Care Team Providers Care Manager Of Recruiting Name Role Phone Maryjane Rhoades MD Primary Care Provider Unava ilable Reason for Visit * Reason Comments Medication Refill Encounter Details Date Type Department Care Team (Late st Contact Info) Description 08/03/2015 Refill [facility] Medicine [address] [place] [address] Maryjane Rhoades MD Medication Refill Social History [...] on filedocumented in this encounter Care Teams Manager Of Recruiting Relationship Specialty Start Date End Date Maryjane Rhoades MD PCP - General Family Medicine 12/06/13 02/18/17 documented as of this encounter
--- OUTSIDE RECORDS SUMMARY | 2024-10-18 11:11 | XMS_ITS | Referral Summary ---
Author Organization [facility] Address [address] [place] [address] Care Team Providers Care Occupational Analyst Name Role Phone Maryjane Rhoades MD Primary [...] Mass Index - - Plan of Treatment Not on file Care Teams Occupational Analyst Relationship Specialty Start Date End Date Maryjane Rhoades MD PCP - General Family Medicine 11/25/13
--- OUTSIDE RECORDS SUMMARY | 2024-10-18 11:11 | XMS_ITS | Encounter Summary ---
Author Organization [facility] Address [address] [place] [address] Care Team Providers Care Hi Ranger Operator Name Role Phone Maryjane hRoades MD Primary Care Provider Unava ilable Reason for Visit * Reason Comments Medication Refill Encounter Details Date Type Department Care Team (Late st Contact Info) Description 04/25/2016 Refill [facility] Medicine [address] [place] [address] Maryjane Rhoades MD Medication Refill Social History [...] on filedocumented in this encounter Care Teams Hi Ranger Operator Relationship Specialty Start Date End Date Maryjane Rhoades MD PCP - General Family Medicine 12/06/13 02/18/17 documented as of this encounter
--- OUTSIDE RECORDS SUMMARY | 2024-10-18 11:12 | XMS_ITS | Clinical Summary ---
Author Organization [facility] Address [address] [place] [address] Care Team Providers Care Refrigerator Room Clerk Name Role Phone Unavailable Primary Care Provider Unavailabl e Allergies No known active allergies Medications sildenafil (VIAGRA) 100 MG tablet Take 1 tablet by mouth as needed for Erectile Dysfunction. 6 tablet 2 02/24/2014 Active atenolol (TENORMIN) 25 MG tablet Take 1 tablet by mouth daily 90 tablet 1 12/12/2014 Active lisinopril (PRINIVIL;ZESTR IL) 10 MG tablet TAKE 1 TABLET BY MOUTH DAILY. 30 tablet 0 07/09/2015 Active atorvastatin (LIPITOR) 40 MG tablet Take 1 tablet by mouth daily 30 tablet 5 08/02/2015 Active atenolol (TENORMIN) 25 MG tablet TAKE 1 TABLET BY MOUTH DAILY. 90 tablet 01/14/2016 Active lisinopril (PRINIVIL;ZESTR IL) 10 MG tablet Take 1 tablet by mouth daily 90 tablet 01/14/2016 Active Active Problems Problem Noted Date Diagnosed Date HTN (hypertension) 12/05/2013 ED (erectile dysfunction) Nausea Atypical chest pain Immunizations Immunization Administration Dates Next Due Pneumococcal, PCV-13, PREVNAR 13, (age 6w+), IM, 0.5mL 07/31/2015 Family History Medical History Relation Name Comments Cancer Mother Diabetes Mother Heart Disease Mother Thyroid Disease Mother Other Son dm age 15 Relation Name Status Comments Mother Son Social History Tobacco Use Types Packs/Day Years Used Date Smoking Tobacco: Every Day Cigarettes 1 37 Smokeless Tobacco: Never Tobacco Cessation:Ready to Q uit: No; Counseling Given: Yes Alcohol Use Standard Drinks/Week Comments Yes 5 (1 standard drink = 0.6 oz pur e alcohol) Sex and Gender Information Value Date Recorded Sex Assigned at Not on file Legal Sex Male 9:06 PM EST Gender Identity Not on file Sexual Orientation Not on file Last Filed Vital Signs Vital Sign Reading Time Taken Comments Blood Pressure 122/84 07/31/2015 10:44 AM EDT Pulse 80 07/31/2015 10:44 AM EDT Temperature - - Respiratory Rate - - Oxygen Saturation - - Inhaled Oxygen Concentration - - Weight 98.9 kg (218 lb) 07/31/2015 10:44 AM EDT Height 177.8 cm (5' 10 ) 07/31/2015 10:44 AM EDT Body Mass Index 31.28 07/31/2015 10:44 AM EDT Plan of Treatment Not on file Insurance [facility]
--- OUTSIDE RECORDS SUMMARY | 2024-10-18 11:12 | XMS_ITS | Clinical Summary ---
Author Organization [facility] Address [address] [place] [address] Care Team Providers Care Wellness Instructor Name Role Phone Historical, Centricity Primary Care Provider Radha vailable Source Comments This information has been disclosed to you from confidential records protectedfrom disclosure by state law. You shall make no further disclosure of thisinformation without the specific, written, and informed release of theindividual to whom it pertains, or as otherwise permitted by law. A generalauthorization for the release of medical or other information is not sufficientfor the purposes of therelease of HIV test results or diagnoses. [id number] Active Problems Problem Noted Date Diagnosed Date Tobacco use disorder 08/27/2011 Chronic pharyngitis 08/27/2011 Social History Tobacco Use Types Packs/Day Years Used Date Smoking Tobacco: Never Assessed Sex and Gender Information Value Date Recorded Sex Assigned at Not on file Legal Sex Male 9:58 PM EST Gender Identity Not on file Sexual Orientation Not on file Last Filed Vital Signs Vital Sign Reading Time Taken Comments Blood Pressure 154/103 08/27/2011 10:38 PM EDT Pulse 83 08/27/2011 10:38 PM EDT Temperature - - Respiratory Rate - - Oxygen Saturation - - Inhaled Oxygen Concentration - - Weight 97.1 kg (214 lb) 08/27/2011 10:38 PM EDT Height 177.8 cm (5' 10 ) 08/27/2011 10:38 PM EDT Body Mass Index 30.71 08/27/2011 10:38 PM EDT Plan of Treatment Not on file Care Teams Wellness Instructor Relationship Specialty Start Date End Date Molina Martin PCP - General 10/14/05
--- OUTSIDE RECORDS SUMMARY | 2024-10-18 11:12 | XMS_ITS | Patient Health Record ---
[facility] Address [address] [facility] [address] [place] [id number] Care Team Providers Care Heel Seat Trimmer Name Role Phone Carl Lee Unavailable [phone] Allergies No Known Allergies Results Component Value Reference Range Notes P-Comprehensive Metabolic Pa jessee (CMP) Reviewed date:10/30/2023 08:17:47 AM Interpretation:bun 7, Cr 0.66, a/g 2.5 Performing Lab: Notes/Report: CLIA: [id number] Peng Farris MD, [place] [employer] [facility] [facility] , [address], [place] [address] Test performed by [facility] Sodium 140 135-145 mmol/L Potassium 4.6 3.5-5.3 [...] Normal Performing Lab: Notes/Report: Test performed by [facility] [address] [facility] [address], [place] [address] Peng Farris MD, [place] [employer]inter JUDAH: [id number] Cholesterol 129 <200 mg/dL Triglycerides 87 <150 [...] Normal Performing Lab: Notes/Report: Test performed by [email or web address] [address] , [place] [address] Peng Farris MD, [place] Printer CLIA: [id number] PSA 1.68 <4.00 ng/mL Please note this is an ultrasensitive PSA assay with a lower limit of detection of 0.014 ng/mL. This test is performed by the Javy ECLIA methodology. Values obtained with different assay methods or kits cannot be directly compared. P-TSH reflex to FT4 Reviewed date:10/30/2023 08:17:47 AM Interpretation: Normal Performing Lab: Notes/Report: Test performed by [facility] [address] [place] [address] , [place] [address] Peng Farris MD, [place] [employer]inter CLIA: [id number] TSH reflex to FT4 1.45 0.43-5.25 mU/L P-Microalbumin/Creatinine, R andom Urine Sample Reviewed date:10/30/2023 08:17:47 AM Interpretation: Normal Performing Lab: Notes/Report: Test performed by [facility] [address] [place] [address] , [address], [place] [address] Peng Farris MD, [place] Printer CLIA: [id number] Albumin/Creatinine Ratio, Urine 7 0-30 ug/mg Microalbumin, Urine, Random 0.4 Creatinine, Urine 58.9 colonoscopy Reviewed date:10/02/2024 02:51:24 PM Interpretation:Colon polyps Performing Lab: Notes/Report: Colon polyps X ray : Spine, cervical Reviewed date:07/06/2024 11:05:33 AM Interpretation: Performing Lab: Notes/Report: X ray : Spine, lumbosacral Reviewed date:07/06/2024 11:06:27 AM Interpretation: Performing Lab: Notes/Report: MRI : Spine, Cervical, witho ut contrast Reviewed date:08/16/2024 09:33:41 AM Interpretation:insurance denied testing Performing Lab: Notes/Report: insurance denied testing MRI : Spine, Lumbosacral, wi thout contrast Reviewed date:08/16/2024 09:33:30 AM Interpretation:Abnormal Performing Lab: Notes/Report: Abnormal Reason For Referral Diagnosis 1 Cervical disc diseas e (M50.90) Diagnosis 2 DDD (degenerative di sc disease), cervical (M50.30) Diagnosis 3 Lumbar facet arthrop athy (M47.816) Diagnosis 4 Cervical radiculopat hy (M54.12) Referral Organization [facility] Referring Provider First Name Carl Referring Provider Last Name Rosa Referring Provider [facility] Referred Provider Toro Leon Referred Provider Specialty Pain Managem ent General Notes Rabia Carol 2024 11:29:42 AM > faxed to [facility] Pain Management Referral Priority Routine Medications Medication SIG (Take, Route, Frequency, Duration) Notes Start Date End Date Status Famotidine 40 MG 1 tablet Orally Once a day; Duration: 90 days 06/21/2024 Not-Takin g Celecoxib 200 MG 1 capsule Orally Onc e a day; Duration: 90 days 06/21/2024 Not-Takin g Lisinopril 10 MG 1 tab(s) orally once [...] Problem Status W/U Status Risk Notes Problem Arthropathy of lumbar facet joint (109401117) Lumbar facet arthropathy (M47.816) Active confirmed Problem Cervical radiculopathy (50468240) Cervical radiculopathy (M54.12) Active confirmed Problem Right cervical radiculopathy (00120874553318681 ) Right cervical radiculopathy (M54.12) Active confirmed Problem Chronic pain (73596568) Other chronic pain (G89.29) Active confirmed Problem Cervical disc disease (596354515) Cervical disc disease (M50.90) Active confirmed Problem Hyperlipidaemia (45949079) Hyperlipidemia, unspecified hyperlipidemia type (E78.5) Active confirmed Problem Cervical disc disorder (353704657) DDD (degenerative disc disease), cervical (M50.30) Active confirmed Problem Tobacco user (078802420) Cigarette nicotine dependence without complication (F17.210) Active confirmed Problem Primary hypertension (33280280) Primary hypertension (I10) Active confirmed Vital Signs Heart Rate 75 /min 09/29/2024 Blood pressure diastolic 68 mm Hg 09/29/2024 Height 70 in 09/29/2024 Blood pressure systolic 108 mm Hg 09/29/2024 Weight 197.4 lbs 09/29/2024 BMI 28.32 kg/m2 09/29/2024 Encounters Encounter Location Date Provider Diagnosis [facility] [address] [place] [address] [place] [id number] 10/29/2023 [place] Primary hypertension I10 ; Hyperlipidemia, unspecified hyperlipidemia type E78.5 ; Other chronic pain G89.29 ; Low back pain, unspecified M54.50 ; Prostate cancer screening Z12.5 and Lung cancer screening declined by patient Z53.20 [facility] [address] [place] [address] [place] [id number] 06/21/2024 [place] Pain of right upper extremity M79.601 ; Right cervical radiculopathy M54.12 ; Low back pain, unspecified M54.50 ; Colon cancer screening Z12.11 and Hx of colonic polyps Z86.0100 [facility] [place] [id number] 07/18/2024 [place] Right cervical radiculopathy M54.12 ; Cervical disc disease M50.90 ; DDD (degenerative disc disease), cervical M50.30 ; Lumbar facet arthropathy M47.816 ; Primary hypertension I10 and Hyperlipidemia, unspecified hyperlipidemia type E78.5 [facility] [address] [place] [id number] 09/29/2024 [place] Low back pain, unspecified M54.50 ; Lumbar facet arthropathy M47.816 ; DDD (degenerative disc disease), cervical M50.30 ; Cervical radiculopathy M54.12 and BMI 28.0-28.9,adult Z68.28 [facility] [address] [facility] [address] [place], [place] [id number] 10/23/2023 [place] Primary hypertension I10 and Hyperlipidemia, unspecified hyperlipidemia type E78.5 [facility] [address] [facility] [address] [place], [place] [id number] 10/30/2023 [place] [facility] [address] [facility] [address] [place], [place] [id number] 07/06/2024 [place] Pain of right upper extremity M79.601 ; Right cervical radiculopathy M54.12 ; Cervical disc disease M50.90 ; DDD (degenerative disc disease), cervical M50.30 ; Low back pain, unspecified M54.50 ; Degeneration of intervertebral disc of lumbar region with discogenic back pain M51.360 and Lumbar facet arthropathy M47.816 [facility] [address] [facility] [address] [place], [place] [id number] 07/18/2024 [place] [facility] [address] [place], [place] [id number] 08/16/2024 [place] Assessments Encounter Date Diagnosis (ICD Code) Assessment Notes Treatment Notes Treatment Clinical Notes Section Notes 10/23/2023 Primary hypertension (ICD-10 - I10) 10/29/2023 Hyperlipidemia, unspecified hyperlipidemia type (ICD-10 - E78.5) 10/29/2023 Primary hypertension (ICD-10 - I10) 06/21/2024 Right cervical radiculopathy (ICD-10 - M54.12) 06/21/2024 Pain of right upper extremity (ICD-10 - M79.601) 07/06/2024 Pain of right upper extremity (ICD-10 - M79.601) 07/06/2024 Right cervical radiculopathy (ICD-10 - M54.12) 07/18/2024 Right cervical radiculopathy (ICD-10 - M54.12) Current course of treatment reviewed, including pertinent labs and diagnostic imaging. Risks and benefits of the use of controlled substances discussed, including the risk of tolerance and drug dependence. Refer to [facility] Controlled Substance Agreement. 07/18/2024 Cervical disc disease (ICD-10 - M50.90) 09/29/2024 Lumbar facet arthropathy (ICD-10 - M47.816) 09/29/2024 Low back pain, unspecified (ICD-10 - M54.50) 09/29/2024 DDD (degenerative disc disease), cervical (ICD-10 - M50.30) 07/18/2024 DDD (degenerative disc disease), cervical (ICD-10 - M50.30) 07/06/2024 Cervical disc disease (ICD-10 - M50.90) 10/29/2023 Other chronic pain (ICD-10 - G89.29) 06/21/2024 Low back pain, unspecified (ICD-10 - M54.50) 10/23/2023 Hyperlipidemia, unspecified hyperlipidemia type (ICD-10 - E78.5) 10/29/2023 Low back pain, unspecified (ICD-10 - M54.50) 06/21/2024 Colon cancer screening (ICD-10 - Z12.11) 07/06/2024 DDD (degenerative disc disease), cervical (ICD-10 - M50.30) 07/18/2024 Lumbar facet arthropathy (ICD-10 - M47.816) 09/29/2024 Cervical radiculopathy (ICD-10 - M54.12) 09/29/2024 BMI 28.0-28.9,adult (ICD-10 - Z68.28) 07/18/2024 Primary hypertension (ICD-10 - I10) 07/06/2024 Low back pain, unspecified (ICD-10 - M54.50) 06/21/2024 Hx of colonic polyps (ICD-10 - Z86.0100) 10/29/2023 Prostate cancer screening (ICD-10 - Z12.5) 10/29/2023 Lung cancer screening declined by patient (ICD-10 - Z53.20) 07/06/2024 Degeneration of intervertebral disc of lumbar region with discogenic back pain (ICD-10 - M51.360) 07/18/2024 Hyperlipidemia, unspecified hyperlipidemia type (ICD-10 - E78.5) 07/06/2024 Lumbar facet arthropathy (ICD-10 - M47.816) Plan Of Treatment No Information Insurance Providers Payer Name Payer Address Payer Phone Subscriber Number Group Number Insured Name Patient Relationship to Insured Coverage Start Date Coverage End Date [employer] (MEDICAR E) [address] [address] [place] [address] [id number] JE GUERRA Self - patient is the insured Medical (General) History Medical History History ICD Code Hypertension Hyperlipidemia Pancreatitis, 04/2022 Alcoholism,Quit 04/2022 50 Year Smoking History as of 2022 Colon Polyps Lumbar Disc Disease Lumbar facet arthropathy Surgical History Surgery Date(Month/Year) Colonoscopy 08/2024
--- OUTSIDE RECORDS SUMMARY | 2024-10-18 11:12 | XMS_ITS | Encounter Summary ---
Author Organization [facility] Address [address] [place] [address] Care Team Providers Care Lead Network Engineer Name Role Phone Maryjane Rhoades MD Primary Care Provider Unava ilable Reason for Visit * Reason Comments Medication Refill Encounter Details Date Type Department Care Team (Late st Contact Info) Description 05/15/2015 Refill [facility] Medicine [address] [place] [id number] Maryjane Rhoades MD Medication Refill Social History [...] on filedocumented in this encounter Care Teams Lead Network Engineer Relationship Specialty Start Date End Date Maryjane Rhoades MD PCP - General Family Medicine 12/06/13 02/18/17 documented as of this encounter
--- NOTE | 2024-10-18 11:32 | EXP.PAIN.OV ---
HPI Data of Consult Patient: new to practice Consult date: 10/18/24 Requesting Physician: Brianna Escudero APRN Primary Care Provider: Carl Lee MD Reason for consult: Low back pain, neck pain, bilateral shoulder pain History of present illness: Mr. Tucker is a 64 year old male who presents today as a new patient. He is a referral from Dr. Lee's office. Patient states he has chronic low back pain, neck pain and shoulder pain that is going on for years. 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 He does state that the pain is different based on what type of activity he is doing. He states generally the low back is worse however he has had more neck pain recently. He has tried acjw-lti-huxtlnj medications along with prescription medications such as naproxen with minimal relief. He does state that he takes kratom that does help some but often makes him nauseous. Patient has tried heat and ice and topicals with minimal relief. He denies any prior surgery or injection history. Patient states he is very active and does exercise at home on a regular basis with no improvement. Patient has had imaging here at the hospital. He denies any heart or kidney issues. Patient is stating that the pain does interfere with his ability perform activities of daily living such as cooking and cleaning. His Abhijit has been reviewed and is appropriate. Pain at rest (0-10 scale): 7 Has patient had previous pain injection?: No Conservative treatment options previously tried: Home exercise plan (Longer than 12 weeks) cc:: CC: Brianna Escudero APRN [facility] Disclaimer: The information contained in this section may have been updated after the patient was seen, as this information can be updated by other users. Medical History (Updated 10/18/24 @ 12:27 by Brianna Escudero APRN) Hyperlipidemia Hypertension Surgical History No significant past surgical history Family History Other Dementia Diabetes Family history of cancer Family history of diabetes mellitus type II Social History (Updated 10/18/24 @ 12:09 by Lauren Roman RN) Smoking Status: Current every day smoker alcohol intake: current substance use type: denies use current occupational status: retired Travel in the last 8 weeks?: None caffeine: Yes Contact w/someone who lives/traveled outside US past 30 days?: No Exposure to someone with infectious disease in past 14 days?: No Do you have a fever (greater than 100.4 F or 38 C)?: No Have you tested positive for COVID-19?: No Exposed to someone with COVID-19 in past 14 days?: No Do you have a sore throat?: No Do you have a cough?: No Do you have any weakness?: No Are you experiencing any nausea/vomitting?: No Do you have any diarrhea?: No Are you experiencing any unusual bleeding?: No Do you have any muscle aches/pain?: No Do you have any abdominal pain?: No Are you experiencing loss of taste or smell?: No Review of Systems Review of Systems Review of systems:: pertinent systems reviewed and negative unless documented below Review of systems (narrative): review of Systems: General: No recent weight changes, no fever, no sleep disturbances Respiratory: No cough, no shortness of air, no recurring pulmonary infections Cardiovascular/peripheral vascular: No chest pain, no palpitations, no edema, no shortness of breath Gastrointestinal: No new onset incontinence, normal bowel movements reported Genitourinary: No new onset incontinence Musculoskeletal: Low back pain, neck pain, bilateral shoulder pain Psychiatric: [Normal mood/affect] Neurological: [Denies weakness in extremities], [denies balance issues] Meds Home Medications and Allergies Home Medications ?Medication ?Instructions ?Recorded ?Confirmed ?Type atenolol 25 mg tablet 25 mg PO DAILY High blood pressure 04/23/22 08/31/24 History lisinopril 10 mg tablet 10 mg PO DAILY High blood pressure 04/23/22 08/31/24 History ondansetron HCl 4 mg tablet 4 mg PO Q8H PRN nausea and 04/25/22 08/31/24 Rx vomiting #30 tabs atorvastatin 40 mg tablet 40 mg PO HS 08/30/24 08/31/24 History New Prescriptions to Start Prescriptions: Allergies Allergy/AdvReac Type Severity Reaction Status Date / Time No Known Allergies Allergy Verified 08/31/24 13:25 Objective Narrative: Physical Exam: General: Alert and oriented x3, no acute distress, pleasant and cooperative Lungs: Respirations even and unlabored, symmetrical chest expansion Eyes: PERRL Musculoskeletal: Flexion and extension of lumbar [spine] somewhat guarded secondary to pain, [antalgic gait noted] positive Kemps test Neurological: Speech clear, no gross sensory deficit Additional findings Additional findings: FINDINGS: Multiplanar MR imaging of the lumbar spine was performed without contrast. On the sagittal T2-weighted images, there is abnormal decreased signal throughout the lumbar discs. There is a prominent S1-S2 disc. The vertebrae are of normal height. The vertebral alignment is normal. T12-L1: There is no significant canal stenosis or neural foraminal narrowing. L1-2: There is no significant canal stenosis or neural foraminal narrowing. L2-3: A moderate annular bulge is present with a left posterolateral disc protrusion, and moderate left neural foraminal narrowing, best seen on image 11 of series 2. L3-4: There is a moderate diffuse disc bulge, with moderate bilateral facet hypertrophy. There is moderate to high-grade right and moderate left neural foraminal narrowing. L4-5: There is an annular bulge with facet hypertrophy, greater on the right than on the left, with moderate to severe right and mild left neural foraminal narrowing. L5-S1: A mild annular bulge is present with endplate hypertrophy greater on the left than on the right. There is moderate to high-grade left and mild to moderate right neural foraminal narrowing. IMPRESSION: Multilevel lumbar degenerative change is present, with neural foraminal narrowing more severe on the left at the L2-3 and L5-S1 levels, and more severe on the right at the L3-4 and L4-5 levels. Reviewed, Interpreted and Dictated by Carson Reis MD Transcribed by Eri Espana Authenticated and [facility] Assessment and Plan *Assessment and plan (1) Degenerative disc disease: Status: Acute Category: Medical (2) Lumbar facet arthropathy: Status: Acute Category: Medical Code(s): M47.816 - Spondylosis without myelopathy or radiculopathy, lumbar region (3) Neck pain: Status: Acute Category: Medical Code(s): M54.2 - Cervicalgia (4) Bilateral shoulder pain: Status: Acute Category: Medical Code(s): M25.511 - Pain in right shoulder; M25.512 - Pain in left shoulder Plan Patient is experiencing significant pain in his low back that is worse with bending, twisting or lifting. Patient did have limited range of motion of his lumbar spine with a positive Kemps test during today's visit. I did discuss with the patient that I do believe he would benefit from a lumbar medial branch block. Risk and benefits were discussed with the patient and he would like to proceed forward with this plan of care. Patient has tried and failed conservative therapy including oral medications, heat and ice, topicals, at home stretching exercise for longer than 12 weeks. Patient has been experiencing chronic low back pain for years. Patient was counseled that if he does get significant relief with his first lumbar medial branch block that we will plan on repeating it with the plan to progress forward to a lumbar RFA at a later date. Patient agrees with this plan of care. Patient will be scheduled for his first diagnostic lumbar medial branch block bilaterally L4-L5 and L5-S1 under fluoroscopy. I will order the patient a compounded cream. Patient has been instructed to contact the clinic with any concerns before the next appointment. Dr. Leon has reviewed this note and agrees with this plan of care. This note was dictated using voice recognition software and make contain errors or omissions. All injections are used with Lidocaine, Bupivacaine and dexamethasone unless diagnostic in which there is no steroids injected. Occasionally urine drug screen is needed to verify patient's compliance with our office pain contract. This is ordered based off specific treatments related to chronic pain with the potential to abuse certain medications.
[2024-10-18 12:08] VITALS: BP 109/68; PULSE 73; RESP 18; O2SAT 95; BMI 29.9
== END 2024-10-18 23:59 | disposition home or self-care (01) ==
LOC: SC.PAIN 11:09
PROVIDERS: PCP Family Medicine; Visit Provider Nurse Practitioner Family
DX: M47.816 Spondylosis without myelopathy or radiculopathy, lumbar region (principal); M54.2 Cervicalgia; M25.511 Pain in right shoulder; Z79.1 Long term (current) use of non-steroidal anti-inflammatories (NSAID)
CPT/HCPCS: 99202; G0463

== ENCOUNTER 2024-11-29 08:15 | Day surgery (SDC) | payer MEDICARE, SELFPAY ==
[2024-11-29 08:30] VITALS: BP 129/88; PULSE 78; RESP 18; O2SAT 98; BMI 28.7
[2024-11-29] MEDS: BUPIVACAINE 0.25% 10ML INJ 25 MG IJ (08:48)
[2024-11-29 08:49] VITALS: BP 121/81; PULSE 74; RESP 18; O2SAT 97
[2024-11-29] MEDS: LIDOCAINE 1% 5ML PF VIAL 5 ML (08:49)
[2024-11-29 08:50] VITALS: BP 121/81; BP 140/83; PULSE 73; PULSE 77; RESP 18; O2SAT 97
--- NOTE | 2024-11-29 09:07 | EXP.PAIN.PRO ---
Procedure Date: 11/29/24 Time: 08:40 Anesthesiologist:: Charanjit Forman CRNA Complications:: None Pre-procedure Diagnosis:: Degenerative disc lumbar spine multilevels. Lumbar radiculopathy. Lumbar spondylosis. Multilevel lumbar facet arthropathy. Post-procedure Diagnosis:: Same. Indications for Procedure:: Patient is a very pleasant 64-year-old male who comes our clinic today for round 1 of lumbar medial branch blocks/facet injections L4-5, L5-S1 levels bilaterally. Patient describes low lumbar back pain as constant, dull, aching. Patient reports difficulty with lumbar flexion, extension, left and right rotation. He rates his pain 7/10. Procedure Details:: Informed consent was obtained and the risk and benefits of the procedure was explained to the patient. Patient was taken to the procedure room where noninvasive monitors were placed, including noninvasive blood pressure cuff as well as pulse oximeter. The area over the lumbar spine was cleansed using chlorhexidine as a cleansing solution. I anesthetized the skin and subcutaneous tissues with 1% Lidocaine. I placed 22-gauge spinal needles into the facet joint/ medial branches of L4-L5, and L5-S1 bilaterally. Needle placement was confirmed with fluoroscopy. After confirmation of needle placement, each site was injected with 1 mL of 1% lidocaine and 0.25 % Marcaine 1 mL. Patient tolerated the procedure without difficulty. There were no complications. Plan and Disposition:: Patient was discharged without incident.
== END 2024-11-29 08:50 | disposition home or self-care (01) ==
PROVIDERS: PCP Family Medicine; Visit Provider Nurse Anesthetist, Certified Registered
DX: M51.16 Intervertebral disc disorders with radiculopathy, lumbar region (principal); M47.816 Spondylosis without myelopathy or radiculopathy, lumbar region; E78.5 Hyperlipidemia, unspecified; I10 Essential (primary) hypertension; F17.200 Nicotine dependence, unspecified, uncomplicated; Z79.899 Other long term (current) drug therapy
CPT/HCPCS: 64493; 64494; J0665; J2003

== ENCOUNTER 2024-12-07 10:23 | Outpatient (POV) | payer MEDICARE, SELFPAY ==
--- OUTSIDE RECORDS SUMMARY | 2024-07-18 05:00 | XMS_ITS ---
Author Organization [facility] Address [address] [facility] 36 [facility] [address] [phone] Care Team Providers Care Refrigeration Manager Name Role Phone [place], Carl Unavailable [phone] Allergies No Known Allergies REASON FOR VISIT [...] a: current smoker 1 PPD Vital Signs Weight 202.4 lbs 07/18/2024 Blood pressure systolic 124 mm Hg 07/19/19 25 Blood pressure diastolic 80 mm Hg 025 Heart Rate 80 /min 07/18/2024 Height 70 in 07/18/2024 BMI 29.04 kg/m2 07/18/2024 Encounters Encounter Location Date Provider Diagnosis [facility] [address] [facility] [address] [phone] 07/18/2024 Carl Lee Right cervical radiculopathy M54.12 [...] of tolerance and drug dependence. Refer to [facility] Controlled Substance Agreement. 07/18/2024 Cervical disc [...] of tolerance and drug dependence. Refer to [facility] Controlled Substance Agreement. Next Appt Details Follow Up: via phone to repo rt test results, 4 Months, Reason: Progress Notes * JE GUERRADOB:[birth year] (64 yo M)Acc No.[id number]:07/18/2024 Patient: Ashwini JE WALDRON Provider: Seymour Lee M.D. :1960 A ge:64 Y S ex:Male Date:07/18/2024 Address[place] Subjective: * Chief Complaints: * 1 . [...] * Images: Billing Information: * Visit Code: 51385 Office Visit, Est Pt., Level 4. * Procedure Codes: G2211 Complex e/m visit add on. 3074F SYST BP LT 130 MM HG. 3079F DIAST BP 80-89 MM HG. * Electronic signature of Ariana Lee MD on 12/07/2024 at 10:39 AM EDT Sign off status: Pending * Provider: Seymour Lee M.D. Date: 0 07/18/2024 Generated for Smita carrasquillo/Annamaria/Linda on: 0 12/07/2024 10:39 AM EDT History and Physical Notes * HPI (History [...]
--- OUTSIDE RECORDS SUMMARY | 2024-08-23 06:45 | XMS_ITS ---
Author Organization [facility] Address 1210 [facility] [address] [place] [phone] Care Team Providers Care Energy Project Manager Name Role Phone Carl Lee Unavailable [phone] REASON FOR VISIT GO OVER TEST RESULTS Encounters Encounter Location Date Provider Diagnosis [facility] [address] [place] [phone] 08/23/2024 Carl Lee Plan Of Treatment No Information Progress Notes * JE GUERRADOB:[birth year] (64 yo M)Acc No.[id number]:08/23/2024 Progress Notes Patient: JE CARNEY Provider: Seymour Lee M.D. :1960 A ge:64 Y S ex:Male Date:08/23/2024 Address:[address] [place], [place] [phone] Subjective: * Chief Complaints: * 1 . GO OVER TEST RESULTS. * Medical History: Objective: * Vitals: Assessment: Plan: * Treatment: * Images: Billing Information: * Visit Code: * Procedure Codes: * Electronic signature of Ariana Lee MD on 12/07/2024 at 10:39 AM EDT Sign off status: Pending * Provider: Seymour Lee M.D. Date: 08/23/2024 Generated for Smita carrasquillo/Annamaria/eTransmitting on: 0 12/07/2024 10:39 AM EDT
--- OUTSIDE RECORDS SUMMARY | 2024-09-29 06:30 | XMS_ITS ---
Author Organization [facility] Address [address] [facility] [address] [facility] [address] [place], [place] [id number] Care Team Providers Care Foundation Digger Name Role Phone Rosa Carl Unavailable [phone] Allergies No Known Allergies Reason For Referral [...] [place] 2024 11:29:42 AM > faxed to [facility] Pain Management Referral Priority Routine REASON FOR [...] W/U Status Risk Notes Problem Cervical radiculopathy (M54.12) Active confirmed Vital Signs Weight 197.4 lbs 09/29/2024 Blood pressure systolic 108 mm Hg 09/30/19 25 Blood pressure diastolic 68 mm Hg 025 Heart Rate 75 /min 09/29/2024 Height 70 in 09/29/2024 BMI 28.32 kg/m2 09/29/2024 Encounters Encounter Location Date Provider Diagnosis [facility] [address] [place], [place] [id number] 09/29/2024 Carl Lee Low back pain, unspecified [...] 3 Months fasting, Reason: Progress Notes * CHARLIEJEDOB:[birth year] (64 yo M)Acc No.[id number]:09/29/2024 Progress Notes Patient: JE CARNEY Provider: Seymour Lee M.D. :1960 A ge:64 Y S ex:Male Date:09/29/2024 Address:[address] [place] [address] Subjective: * Chief Complaints: * 1 . [...] ervical radiculopathy - M54.12 5 . B ND 28.0-28.9,adult - Z68.28 Plan: * Treatment: 2. [...] * Images: Billing Information: * Visit Code: 93391 Office Visit, Est Pt., Level 3. * Procedure Codes: G8420 BMI<30 AND >=22 CALC & DOCU. G8783 BP SCR PRFRM RCMDD DEFIND SCR INTVL. G8752 MOST RECENT SYSTOLIC BP < 140MM HG. G8754 MOST RECENT DIASTOLIC BP < 90MM HG. * Electronic signature of Ariana Lee MD on 12/07/2024 at 10:38 AM EDT Sign off status: Pending * Provider: Seymour Lee M.D. Date: 0 09/29/2024 Generated for Smita carrasquillo/Annamaria/Singhitting on: 0 12/07/2024 10:38 AM EDT History and Physical Notes * [...] Provider Referred Provider Not ricky 09/29/2024 Carl Lee Anjum
--- OUTSIDE RECORDS SUMMARY | 2024-12-07 10:39 | XMS_ITS | Clinical Summary ---
Author Organization [facility] Address [address] [place] [address] Care Team Providers Care Database Design Analyst Name Role Phone Historical, Centricity Primary Care [...] therelease of HIV test results or diagnoses. [id number] Active Problems Problem Noted Date Diagnosed [...] of Treatment Not on file Care Teams Database Design Analyst Relationship Specialty Start Date End Date Molina Martin PCP - General 10/14/05
--- OUTSIDE RECORDS SUMMARY | 2024-12-07 10:39 | XMS_ITS | Encounter Summary ---
Author Organization [facility] Address [address] [facility], [address] [place] [address] Care Team Providers Care Wheel Braider Name Role Phone Maryjane Rhoades MD Primary Care Provider Unava ilable Reason for Visit * Reason Comments Other Encounter Details Date Type Department Care Team (Late st Contact Info) Description 09/10/2014 Refill [facility] Medicine [address] [place] [id number] Maryjane Rhoades MD Other Social History Tobacco [...] on filedocumented in this encounter Care Teams Wheel Braider Relationship Specialty Start Date End Date Maryjane Rhoades MD PCP - General Family Medicine 12/06/13 02/18/17 documented as of this encounter
--- OUTSIDE RECORDS SUMMARY | 2024-12-07 10:39 | XMS_ITS | Clinical Summary ---
Author Organization [facility] Address [address] [facility], [address] [place] [address] Care Team Providers Care Manager Planning Name Role Phone Unavailable Primary Care Provider [...] Plan of Treatment Not on file Insurance [facility]
--- OUTSIDE RECORDS SUMMARY | 2024-12-07 10:39 | XMS_ITS | Referral Summary ---
Author Organization [facility] Address [address] [place] [address] Care Team Providers Care Reduction Plant Supervisor Name Role Phone Maryjane Rhoades MD Primary [...] of Treatment Not on file Care Teams Reduction Plant Supervisor Relationship Specialty Start Date End Date Maryjane Rhoades MD PCP - General Family Medicine 11/25/13
--- OUTSIDE RECORDS SUMMARY | 2024-12-07 10:39 | XMS_ITS | Encounter Summary ---
Author Organization [facility] Address [address] [facility], [address] [place] [address] Care Team Providers Care Coremaker Experimental Name Role Phone Maryjane Rhoades MD Primary Care Provider Unava ilable Reason for Visit * Reason Comments Other Encounter Details Date Type Department Care Team (Late st Contact Info) Description 11/11/2014 Refill [facility] [address] [place] [id number] Maryjane Rhoades MD Other Social History Tobacco [...] on filedocumented in this encounter Care Teams Coremaker Experimental Relationship Specialty Start Date End Date Maryjane Rhoades MD PCP - General Family Medicine 12/06/13 02/18/17 documented as of this encounter
--- OUTSIDE RECORDS SUMMARY | 2024-12-07 10:39 | XMS_ITS | Encounter Summary ---
Author Organization [facility] Address [address], [address] [place] [address] Care Team Providers Care Fruit Thinner Machine Operator Name Role Phone Maryjane Rhoades MD Primary Care Provider Unava ilable Reason for Visit * Reason Comments Medication Refill Encounter Details Date Type Department Care Team (Late st Contact Info) Description 04/25/2016 Refill Emily [facility] Medicine [address] [place] [address] Maryjane Rhoades MD Medication Refill Social History [...] on filedocumented in this encounter Care Teams Fruit Thinner Machine Operator Relationship Specialty Start Date End Date Maryjane Rhoades MD PCP - General Family Medicine 12/06/13 02/18/17 documented as of this encounter
--- OUTSIDE RECORDS SUMMARY | 2024-12-07 10:39 | XMS_ITS | Encounter Summary ---
Author Organization [facility] Address [address], [address] [place] [address] Care Team Providers Care Compass Operator Name Role Phone Maryjane Rhoades MD Primary Care Provider Unava ilable Reason for Visit * Reason Comments Medication Refill Encounter Details Date Type Department Care Team (Late st Contact Info) Description 05/09/2016 Refill [facility] Medicine [address] [place] [id number] Maryjane Rhoades MD Medication Refill Social History [...] on filedocumented in this encounter Care Teams Compass Operator Relationship Specialty Start Date End Date Maryjane Rhoades MD PCP - General Family Medicine 12/06/13 02/18/17 documented as of this encounter
--- OUTSIDE RECORDS SUMMARY | 2024-12-07 10:39 | XMS_ITS | Encounter Summary ---
Author Organization [facility] Address [address], [address] [place] [address] Care Team Providers Care Transportation Solutions Manager Name Role Phone Maryjane Rhoades MD Primary Care Provider Unava ilable Reason for Visit * Reason Comments Medication Refill Encounter Details Date Type Department Care Team (Late st Contact Info) Description 05/15/2015 Refill Emily [facility] Medicine [address] [place] [address] Maryjane Rhoades MD Medication Refill Social History [...] on filedocumented in this encounter Care Teams Transportation Solutions Manager Relationship Specialty Start Date End Date Maryjane Rhoades MD PCP - General Family Medicine 12/06/13 02/18/17 documented as of this encounter
--- OUTSIDE RECORDS SUMMARY | 2024-12-07 10:39 | XMS_ITS | Patient Health Record ---
Author Organization [facility] Address [address] [facility] [address] [place] [phone] Care Team Providers Care Line Dancer Name Role Phone Carl Lee Unavailable [phone] Allergies No Known Allergies Results Component Value Reference Range Notes MRI : Spine, Cervical, witho ut contrast Reviewed date:08/16/2024 09:33:41 AM Interpretation:insurance denied testing Performing Lab: Notes/Report: insurance denied testing MRI : Spine, Lumbosacral, wi thout contrast Reviewed date:08/16/2024 09:33:30 AM Interpretation:Abnormal Performing Lab: Notes/Report: Abnormal colonoscopy Reviewed date:10/02/2024 02:51:24 PM Interpretation:Colon polyps Performing Lab: Notes/Report: Colon polyps X ray : Spine, cervical Reviewed date:07/06/2024 11:05:33 AM Interpretation: Performing Lab: Notes/Report: X ray : Spine, lumbosacral Reviewed date:07/06/2024 11:06:27 AM Interpretation: Performing Lab: Notes/Report: Reason For Referral Diagnosis 1 Cervical disc [...] [facility] Pain Management Referral Priority Routine Medications [...] Orally Two times a day; Duration: 30 days 10/19/2024 Active Atenolol 25 MG 1 tab(s) orally [...] Notes Problem Arthropathy of lumbar facet joint (762658435) Lumbar facet arthropathy (M47.816) Active confirmed Problem Cervical radiculopathy (94673864) Cervical radiculopathy (M54.12) Active confirmed Problem Right cervical radiculopathy (75940279589182189 ) Right cervical radiculopathy (M54.12) Active confirmed Problem Chronic pain (13137579) Other chronic pain (G89.29) Active confirmed Problem Cervical disc disease (737991789) Cervical disc disease (M50.90) Active confirmed Problem Hyperlipidaemia (27797449) Hyperlipidemia, unspecified hyperlipidemia type (E78.5) Active confirmed Problem Cervical disc disorder (473877685) DDD (degenerative disc disease), cervical (M50.30) Active confirmed Problem Tobacco user (776900170) Cigarette nicotine dependence without complication (F17.210) Active confirmed Problem Primary hypertension (01169654) Primary hypertension (I10) Active confirmed Vital Signs Heart Rate 75 /min 09/29/2024 Blood pressure diastolic 68 mm Hg 09/29/2024 Height 70 in 09/29/2024 Blood pressure systolic 108 mm Hg 09/29/2024 Weight 197.4 lbs 09/29/2024 BMI 28.32 kg/m2 09/29/2024 Encounters Encounter Location Date Provider Diagnosis [facility] [address] [place], [place] [id number] 06/21/2024 Carl [place] Pain of right upper extremity M79.601 ; Right cervical radiculopathy M54.12 ; Low back pain, unspecified M54.50 ; Colon cancer screening Z12.11 and Hx of colonic polyps Z86.0100 [facility] [address] [facility] [address] [place], [place] [phone] 07/18/2024 Carl [place] Right cervical radiculopathy M54.12 ; Cervical disc disease M50.90 ; DDD (degenerative disc disease), cervical M50.30 ; Lumbar facet arthropathy M47.816 ; Primary hypertension I10 and Hyperlipidemia, unspecified hyperlipidemia type E78.5 [facility] [address] [facility] [address] [place], [place] [id number] 09/29/2024 Carl [place] Low back pain, unspecified M54.50 ; Lumbar facet arthropathy M47.816 ; DDD (degenerative disc disease), cervical M50.30 ; Cervical radiculopathy M54.12 and BMI 28.0-28.9,adult Z68.28 [facility] [address] [facility] [address] [place], [place] [id number] 07/06/2024 Carl [place] Pain of right upper extremity M79.601 ; Right cervical radiculopathy M54.12 ; Cervical disc disease M50.90 ; DDD (degenerative disc disease), cervical M50.30 ; Low back pain, unspecified M54.50 ; Degeneration of intervertebral disc of lumbar region with discogenic back pain M51.360 and Lumbar facet arthropathy M47.816 [facility] [address] [facility] [address] [place], [place] [id number] 07/18/2024 Carl [place] [facility] [address] [facility] [address] [place], [place] [id number] 08/16/2024 Carl [place] [facility] [address] [facility] [address] [place], [place] [phone] 10/18/2024 Carl [place] Right cervical radiculopathy M54.12 Assessments Encounter Date Diagnosis (ICD Code) Assessment Notes Treatment Notes Treatment Clinical Notes Section Notes 06/21/2024 Right cervical radiculopathy (ICD-10 - M54.12) [...] of tolerance and drug dependence. Refer to [facility] Controlled Substance Agreement. 07/18/2024 Cervical disc disease (ICD-10 - M50.90) 09/29/2024 Lumbar facet arthropathy (ICD-10 - M47.816) 09/29/2024 Low back pain, unspecified (ICD-10 - M54.50) 10/18/2024 Right cervical radiculopathy (ICD-10 - M54.12) 09/29/2024 DDD (degenerative disc disease), cervical (ICD-10 - M50.30) 07/18/2024 DDD (degenerative disc disease), cervical (ICD-10 - M50.30) 07/06/2024 Cervical disc disease (ICD-10 - M50.90) 06/21/2024 Low back pain, unspecified (ICD-10 - [...] Hx of colonic polyps (ICD-10 - Z86.0100) 07/06/2024 Degeneration of intervertebral disc of lumbar [...] Date [employer] (MEDICAR E) [address] [address] [place] [address] [id number] JE GUERRA Self - patient is the insured Medical (General) History Medical History History ICD Code Hypertension Hyperlipidemia Pancreatitis, 04/2022 Alcoholism,Quit 04/2022 48 Year Smoking History as of 2022 Colon Polyps Lumbar Disc Disease Lumbar facet arthropathy Surgical History Surgery Date(Month/Year) Colonoscopy 08/2024
--- OUTSIDE RECORDS SUMMARY | 2024-12-07 10:39 | XMS_ITS | Encounter Summary ---
Author Organization [facility] Address [address] [facility] [facility], [address] [place] [address] Care Team Providers Care Final Inspector And Tester Name Role Phone Maryjane Rhoades MD Primary Care Provider Unava ilable Reason for Visit * Reason Comments Medication Refill Encounter Details Date Type Department Care Team (Late st Contact Info) Description 08/03/2015 Refill Emily [facility] Medicine [address] [place] [address] Maryjane Rhoades MD Medication Refill Social History [...] on filedocumented in this encounter Care Teams Final Inspector And Tester Relationship Specialty Start Date End Date Maryjane Rhoades MD PCP - General Family Medicine 12/06/13 02/18/17 documented as of this encounter
--- OUTSIDE RECORDS SUMMARY | 2024-12-07 10:39 | XMS_ITS | Clinical Summary ---
Author Organization [facility] Address [address] [place] [address] Care Team Providers Care Barn Operator Name Role Phone Maryjane Rhoades MD [...] age to complete this topic Care Teams Barn Operator Relationship Specialty Start Date End Date Maryjane Rhoades MD PCP - General Family Medicine 11/25/13
[2024-12-07 10:44] VITALS: BP 138/90; PULSE 78; RESP 14; O2SAT 96; BMI 29.4
--- NOTE | 2024-12-07 11:40 | EXP.PAIN.SOA ---
[facility] Disclaimer: The information contained in this section may have been updated after the patient was seen, as this information can be updated by other users. Medical History Hyperlipidemia Hypertension Surgical History No significant past surgical history Family History Other Dementia Diabetes Family history of cancer Family history of diabetes mellitus type II Social History Smoking Status: Current every day smoker alcohol intake: current substance use type: denies use current occupational status: other Travel in the last 8 weeks?: None caffeine: Yes PM Subjective & Objective Subjective Subjective:: Patient is a pleasant 64-year-old male who presents today for follow-up of his first lumbar medial branch block bilaterally L4-L5 and L5-S1 on 11/29/2024. Today he rates his pain around a 4 or 5 out of 10 and does state that he is going back towards his previous pain score. He does state the pain has now returned and is interfering with his ability perform activities of daily living such as cooking and cleaning. Patient does state however that he did notice significant improvement following this injection for about 3 hours. He is rating at least 80% improvement and does state that it did start to taper down over the next couple of hours. He does state that he felt like overall his pain was much better and had improved function and even his posture was better and able to stand straighter. Patient was very interested in proceeding forward with the next step as this did provide significant relief. His Abhijit has been reviewed and is appropriate. Review of Systems: General: No recent weight changes, no fever, no sleep disturbances Respiratory: No cough, no shortness of air, no recurring pulmonary infections Cardiovascular/peripheral vascular: No chest pain, no palpitations, no edema, no shortness of breath Gastrointestinal: No new onset incontinence, normal bowel movements reported Genitourinary: No new onset incontinence Musculoskeletal: Low back pain Psychiatric: [Normal mood/affect] Neurological: [Denies weakness in extremities], [denies balance issues] Pain at rest (0-10 scale): 5 Objective Objective:: Physical Exam: General: Alert and oriented x3, no acute distress, pleasant and cooperative Lungs: Respirations even and unlabored, symmetrical chest expansion Eyes: PERRL Musculoskeletal: Flexion and extension of lumbar [spine] somewhat guarded secondary to pain, [antalgic gait noted] positive Kemps test Neurological: Speech clear, no gross sensory deficit Has patient had previous pain injection?: No Conservative treatment options previously tried: Home exercise plan Length of treatment: Longer than 12 weeks Meds Home Medications and Allergies Home Medications ?Medication ?Instructions ?Recorded ?Confirmed ?Type atenolol 25 mg tablet 25 mg PO DAILY High blood pressure 04/23/22 12/07/24 History lisinopril 10 mg tablet 10 mg PO DAILY High blood pressure 04/23/22 12/07/24 History ondansetron HCl 4 mg tablet 4 mg PO Q8H PRN nausea and 04/25/22 12/07/24 Rx vomiting #30 tabs atorvastatin 40 mg tablet 40 mg PO HS 08/30/24 12/07/24 History New Prescriptions to Start Prescriptions: Allergies Allergy/AdvReac Type Severity Reaction Status Date / Time No Known Allergies Allergy Verified 08/31/24 13:25 Assessment and Plan *Assessment and plan (1) Degenerative disc disease: Status: Acute Category: Medical (2) Lumbar facet arthropathy: Status: Acute Category: Medical Code(s): M47.816 - Spondylosis without myelopathy or radiculopathy, lumbar region Plan Patient did have a successful first lumbar medial branch block and I did review with him regarding repeat diagnostic block. Risk and benefits were discussed with patient and he would like to proceed forward with this plan of care. Patient did have limited range of motion of his lumbar spine during today's visit with a positive Kemps test. Patient did get 80% relief with his first lumbar medial branch block that did last 3 hours and had very minimal pain with improved function and posture. Patient was counseled if he does get significant improvement with this second diagnostic block we will proceed forward with the lumbar RFA at a later date. Patient acknowledges understanding agrees with plan of care. Patient has continued at home stretching and exercise for longer than 12 weeks with no additional changes. Patient has had chronic back pain for longer than 6 months. Patient has failed oral medications, heat and ice, topicals. We will schedule him for the second lumbar medial branch block bilaterally L4-L5 and L5-S1 under fluoroscopy. Patient has been instructed to contact the clinic with any concerns before the next appointment. Dr. Leon has reviewed this note and agrees with this plan of care. This note was dictated using voice recognition software and make contain errors or omissions. All injections are used with Lidocaine, Bupivacaine and dexamethasone unless diagnostic in which no steroids are used. Occasionally urine drug screen is needed to verify patient's compliance with our office pain contract. This is ordered based off specific treatments related to chronic pain with the potential to abuse certain medications.
== END 2024-12-07 23:59 | disposition home or self-care (01) ==
LOC: SC.PAIN 10:24
PROVIDERS: PCP Family Medicine; Visit Provider Nurse Practitioner Family
DX: M47.816 Spondylosis without myelopathy or radiculopathy, lumbar region (principal)
CPT/HCPCS: 99212; G0463

== ENCOUNTER 2025-01-31 08:59 | Day surgery (SDC) | payer MEDICARE, SELFPAY ==
[2025-01-31 09:10] VITALS: BP 113/74; PULSE 66; RESP 16; O2SAT 99; BMI 27.9
[2025-01-31 09:24] VITALS: BP 109/75; PULSE 66; PULSE 70; RESP 18; O2SAT 98
[2025-01-31] MEDS: LIDOCAINE 1% 5ML PF VIAL 5 ML (09:24)
[2025-01-31 09:30] VITALS: BP 116/73; PULSE 68; RESP 16; O2SAT 97
--- NOTE | 2025-01-31 09:30 | P.PCN_ITS ---
Procedure Date: 01/31/25 Time: 09:30 Anesthesiologist:: Yevgeniy Forman CRNA Complications:: None Pre-procedure Diagnosis:: Degenerative disc lumbar spine multilevels. Lumbar radiculopathy. Lumbar spondylosis. Multilevel lumbar facet arthropathy. Post-procedure Diagnosis:: Same. Indications for Procedure:: Patient is a very pleasant 64-year-old male who comes our clinic today for round 2 of lumbar bilateral medial branch blocks/facet injections at the L4-5 and L5- S1 level. This is a diagnostic block of local anesthetic. Patient describes significant improvement terms of his overall low back symptoms with his first round of injections. He reports improvement with lumbar flexion, extension, left and right rotation. He rates his pain today 6/10. Procedure Details:: Informed consent was obtained and the risk and benefits of the procedure was explained to the patient. Patient was taken to the procedure room where noninvasive monitors were placed, including noninvasive blood pressure cuff as well as pulse oximeter. The area over the lumbar spine was cleansed using chlorhexidine as a cleansing solution. I anesthetized the skin and subcutaneous tissues with 1% Lidocaine. I placed 22-gauge spinal needles into the facet j oint/ medial branches of L4-L5, and L5-S1 bilaterally. Needle placement was confirmed with fluoroscopy. After confirmation of needle placement, each site was injected with 1 mL of 1% lidocaine and 0.25 % Marcaine 1 mL. Patient tolerated the procedure without difficulty. There were no complications. Plan and Disposition:: Patient was discharged without incident.
== END 2025-01-31 09:30 | disposition home or self-care (01) ==
PROVIDERS: PCP Family Medicine; Visit Provider Nurse Anesthetist, Certified Registered
DX: M47.816 Spondylosis without myelopathy or radiculopathy, lumbar region (principal); E78.5 Hyperlipidemia, unspecified; I10 Essential (primary) hypertension; F17.200 Nicotine dependence, unspecified, uncomplicated; Z79.899 Other long term (current) drug therapy
CPT/HCPCS: 64493; 64494; J2003

== ENCOUNTER 2025-02-23 08:25 | Outpatient (CLI) | payer MEDICARE, SELFPAY ==
--- OUTSIDE RECORDS SUMMARY | 2023-10-29 06:00 | XMS_ITS ---
Author Organization [facility] Address [address] [facility] [address] [facility] [address] [place] [id number] Care Team Providers Care Molding Machine Tender Name Role Phone Carl Lee Unavailable [phone] Allergies No Known Allergies Results Component Value Reference Range Notes P-Comprehensive Metabolic Pa jessee (CMP) Reviewed date:10/30/2023 08:17:47 AM Interpretation:bun 7, Cr 0.66, a/g 2.5 Performing Lab: Notes/Report: Test performed by [facility], [address] , [address], [place] [address] Peng Farris MD, Collar Band Creaser CLIA: [id number] Sodium 140 135-145 mmol/L Potassium 4.6 3.5-5.3 mmol/L Chloride 105 97-108 mmol/L CO2 22 22-32 mmol/L Glucose 92 65-99 mg/dL BUN 7 8-23 mg/dL Creatinine 0.66 0.70-1.30 mg/dL Calcium 9.7 8.6-10.4 mg/dL eGFR by Creatinine 104 >59 mL/min/1.73m2 Protein 6.7 6.0-8.3 g/dL Albumin 4.8 3.5-5.3 g/dL Alkaline Phosphatase 71 40-129 IU/L ALT (SGPT) 11 <5-55 IU/L AST (SGOT) 16 <5-46 IU/L Bilirubin, Total 0.4 <0.2-1.2 mg/dL A/G Ratio 2.5 1.1-2.5 mg/dL P-Lipid Panel Reviewed date:10/30/2023 08:17:47 AM Interpretation: Normal Performing Lab: Notes/Report: Test performed by [facility] [address] [facility] [address], [place] [address] Peng Farris MD, Collar Band Creaser JUDAH: [id number] Cholesterol 129 <200 mg/dL Triglycerides 87 <150 mg/dL HDL Cholesterol 42 >39 mg/dL Cholesterol / HDL Ratio 3.07 0.00-4.99 Ratio Non-HDL Cholesterol 87 <130 mg/dL LDL Cholesterol (Calculation) 70 <130 mg/dL LDL Cholesterol Levels* Less than 100 mg/dL Optimal 100 to 129 mg/dL Near Optimal/ Above Optimal 130 to 159 mg/dL Borderline High 160 to 189 mg/dL High 190 mg/dL and above Very High * Categories as recommended by the 2004 ATPIII guidelines LDL/HDL Ratio 1.7 <3.3 Ratio LDL Cholesterol Patient History Test Date: 07/07/2022 LDL Results: 187 Units: mg/dL % Change: - Test Date: 10/29/2023 LDL Results: 70 Units: mg/dL % Change: -62% P-PSA Reviewed date:10/30/2023 08:17:47 AM Interpretation: Normal Performing Lab: Notes/Report: Test performed by [facility] [address] , [facility], [place] [address] Peng Farris MD, Collar Band Creaser CLIA: [id number] PSA 1.68 <4.00 ng/mL Please note this is an ultrasensitive PSA assay with a lower limit of detection of 0.014 ng/mL. This test is performed by the Javy ECLIA methodology. Values obtained with different assay methods or kits cannot be directly compared. P-TSH reflex to FT4 Reviewed date:10/30/2023 08:17:47 AM Interpretation: Normal Performing Lab: Notes/Report: Test performed by [facility] [address] , [facility] [place] [address] Peng Farris MD, Collar Band Creaser CLIA: [id number] TSH reflex to FT4 1.45 0.43-5.25 mU/L P-Microalbumin/Creatinine, R andom Urine Sample Reviewed date:10/30/2023 08:17:47 AM Interpretation: Normal Performing Lab: Notes/Report: Test performed by [facility] [address] , [facility], [place] [address] Peng Farris MD, Collar Band Creaser CLIA: [id number] Albumin/Creatinine Ratio, Urine 7 0-30 ug/mg Microalbumin, Urine, Random 0.4 Creatinine, Urine 58.9 REASON FOR VISIT check up Medications Medication SIG (Take, Route, Frequency, Duration) Notes Start Date End Date Status Atorvastatin Calcium 40 MG 1 tab(s) oral ly once a day; Duration: 90 days Active Lisinopril 10 MG 1 tab(s) orally once a day; Duration: 90 days Active Atenolol 25 MG 1 tab(s) orally once a day; Duration: 90 days Active Naproxen 500 MG 1 tablet with food o r milk as needed Orally every 12 hrs 10/29/2023 Active Social History Tobacco Use: Social History Observation Description Date Details (start date - stop date) Current Smoker NA - NA CURRENT TOBACCO USE: Question Answer Notes Are you a: current smoker 1 PPD Problems Problem Type SNOMED Code ICD Code Onset Dates Problem Status W/U Status Risk Notes Problem Chronic pain (38909960) Other chronic pain (G89.29) Active confirmed Vital Signs Blood pressure systolic 110 mm Hg 10/29/19 24 Blood pressure diastolic 64 mm Hg 024 Heart Rate 86 /min 10/29/2023 Height 70 in 10/29/2023 Weight 200 lbs 10/29/2023 BMI 28.69 kg/m2 10/29/2023 Encounters Encounter Location Date Provider Diagnosis [facility] [address] [facility] [address] [place], [place] [id number] 10/29/2023 Carl Lee Primary hypertension I10 ; Hyperlipidemia, unspecified hyperlipidemia type E78.5 ; Other chronic pain G89.29 ; Low back pain, unspecified M54.50 ; Prostate cancer screening Z12.5 and Lung cancer screening declined by patient Z53.20 Assessments Encounter Date Diagnosis (ICD Code) Assessment Notes Treatment Notes Treatment Clinical Notes Section Notes 10/29/2023 Primary hypertension (ICD-10 - I10) 10/29/2023 Hyperlipidemia, unspecified hyperlipidemia type (ICD-10 - E78.5) 10/29/2023 Other chronic pain (ICD-10 - G89.29) 10/29/2023 Low back pain, unspecified (ICD-10 - M54.50) 10/29/2023 Prostate cancer screening (ICD-10 - Z12.5) 10/29/2023 Lung cancer screening declined by patient (ICD-10 - Z53.20) Plan Of Treatment Medication Medication Name Sig Start Date Stop Date Notes Atorvastatin Calcium 40 MG 1 tab(s) oral ly once a day; Duration: 90 days Lisinopril 10 MG 1 tab(s) orally once a day; Duration: 90 days Atenolol 25 MG 1 tab(s) orally once a day; Duration: 90 days Natalia Aspirin 325 MG 1 tab(s) orally every 4 hours Naproxen 500 MG 1 tablet with food o r milk as needed Orally every 12 hrs 10/29/2023 Next Appt Details Follow Up: 6 Months, Reason: Progress Notes * JE GUERRADOB:[birth year] (65 yo M)Acc No.[id number]:10/29/2023 Progress Notes Patient: JE CARNEY Provider: Seymour Lee M.D. :1960 A ge:63 Y S ex:Male Date:10/29/2023 Address:[facility] Subjective: * Chief Complaints: * 1 . Check up. * HPI: C ardiology: 63 year old male presents with c/o Blood Pressure Elevated P t here to f/u on hypertension, states he is doing well and does not have any concerns. c/o Hyperlipidemia P t is fasting today. * ROS: D ERMATOLOGY: no R dusty. n o H nely. G ASTROENTEROLOGY: no N ausea. n o V omiting. U ROLOGY: no D ifficulty urinating. n o B lood in urine. * Medical History: H ypertension, Hyperlipidemia, Pancreatitis, 04/2022, Alcoholism,Quit 04/2022, 50 Year Smoking History as of 2022, Colon Polyps. * Surgical History: C olonoscopy . * Hospitalization/Major Diagno stic Procedure: D enies Past Hospitalization. * Family History: M other: diagnosed with Diabetes, Hypertension, Cancer. * Social History: C URRENT TOBACCO USE: Yes A re you a: c urrent smoker 1 PPD. C affeine: yes, frequency: 5 per day. Alcohol: no. * Medications: T ofelia Natalia Aspirin 325 MG Tablet 1 tab(s) orally every 4 hours , Taking Atenolol 25 MG Tablet 1 tab(s) orally once a day , Taking Atorvastatin Calcium 40 MG Tablet 1 tab(s) orally once a day , Taking Lisinopril 10 MG Tablet 1 tab(s) orally once a day , Medication List reviewed and reconciled with the patient * Allergies: N .K.D.A. Objective: * Vitals: W t:200, Temp:98.0, BP:110/64, HR:86, Nurse:chrissy, Ht: 70, BMI:28.69. * Examination: C ardiology: General Appearance: p leasant, NAD. H eart sounds: R RR, normal S1, S2. L ungs: c lear, no rales or wheezes. Assessment: * Assessment: 1. P rimary hypertension - I10 (Primary) 2 . H yperlipidemia, unspecified hyperlipidemia type - E78.5 3 . O ther chronic pain - G89.29 4 .?Low back pain, unspecified - M54.50 5 . P rostate cancer screening - Z12.5 6. L ulises cancer screening declined by patient - Z53.20 Plan: * Treatment: Value Reference Range A /G Ratio 2.5 H 1.1-2.5 - mg/dL * A lbumin 4.8 3.5-5.3 - g/dL * A lkaline Phosphatase 71 40-129 - IU/L * A LT (SGPT) 11 <5-55 - IU/L * A ST (SGOT) 16 <5-46 - IU/L * B ilirubin, Total 0.4 <0.2-1.2 - mg/dL * B UN 7 L 8-23 - mg/dL * C alcium 9.7 8.6-10.4 - mg/dL * C hloride 105 97-108 - mmol/L * C O2 22 22-32 - mmol/L * C reatinine 0.66 L 0.70-1.30 - mg/dL * G lucose 92 65-99 - mg/dL * P otassium 4.6 3.5-5.3 - mmol/L * S odium 140 135-145 - mmol/L * P rotein 6.7 6.0-8.3 - g/dL * e GFR by Creatinine 104 >59 - mL/min/1.73m2 * Kiara Mortensen 10/30/2023 8:17: 40 AM >See phone encounter ?LAB: P-Microalbumin/Creatinine, Random Urine Sample (Collection Date & Time - 10/29/2023 10:45 AM)?Normal* Value Reference Range A lbumin/Creatinine Ratio, Urine 7 0-30 - ug /mg * C reatinine, Urine 58.9 - mg/dL * M icroalbumin, Urine, Random 0.4 - mg/dL * Kiara Mortensen 10/30/2023 8:17: 40 AM >See phone encounter 2.?Hyperlipidemia, unspecified hyperlipidemia type? Refill Atorvastatin Calcium Tablet, 40 MG, 1 tab(s), orally, once a day, 90 days, 90, Refills 1. ?LAB: P-Comprehensive Metabolic Panel (CMP) (Collection Date & Time - 10/29/2023 10:45 AM)?bun 7, Cr 0.66, a/g 2.5* Value Reference Range A /G Ratio 2.5 H 1.1-2.5 - mg/dL * A lbumin 4.8 3.5-5.3 - g/dL * A lkaline Phosphatase 71 40-129 - IU/L * A LT (SGPT) 11 <5-55 - IU/L * A ST (SGOT) 16 <5-46 - IU/L * B ilirubin, Total 0.4 <0.2-1.2 - mg/dL * B UN 7 L 8-23 - mg/dL * C alcium 9.7 8.6-10.4 - mg/dL * C hloride 105 97-108 - mmol/L * C O2 22 22-32 - mmol/L * C reatinine 0.66 L 0.70-1.30 - mg/dL * G lucose 92 65-99 - mg/dL * P otassium 4.6 3.5-5.3 - mmol/L * S odium 140 135-145 - mmol/L * P rotein 6.7 6.0-8.3 - g/dL * e GFR by Creatinine 104 >59 - mL/min/1.73m2 * Kiara Mortensen 10/30/2023 8:17: 40 AM >See phone encounter ?LAB: P-Lipid Panel (Collection Date & Time - 10/29/2023 10:45 AM)?Normal* Value Reference Range C holesterol / HDL Ratio 3.07 0.00-4.99 - Ratio * C holesterol 129 <200 - mg/dL * H DL Cholesterol 42 >39 - mg/dL * L DL Cholesterol (Calculation) 70 <130 - mg/d L * L DL/HDL Ratio 1.7 <3.3 - Ratio * N on-HDL Cholesterol 87 <130 - mg/dL * T riglycerides 87 <150 - mg/dL * Kiara Mortensen 10/30/2023 8:17: 40 AM >See phone encounter ?LAB: P-TSH reflex to FT4 (Collection Date & Time - 10/29/2023 10:45 AM)? Normal* Value Reference Range T SH reflex to FT4 1.45 0.43-5.25 - mU/L * Kiara Mortensen 10/30/2023 8:17: 40 AM >See phone encounter 3.?Low back pain, unspecified? Start Naproxen Tablet, 500 MG, 1 tablet with food or milk as needed, Orally, every 12 hrs, 45, Refills 1.??4.?Prostate cancer screening?LAB: P-PSA (Collection Date & Time - 10/29/2023 10:45 AM)?Normal* Value Reference Range P SA 1.68 <4.00 - ng/mL * Kiara Mortensen 10/30/2023 8:17: 40 AM >See phone encounter 5.?Others? Stop Antalia Aspirin Tablet, 325 MG, 1 tab(s), orally, every 4 hours.?? * Procedure Codes: G 2211 Complex e/m visit add on * Follow Up: 6 Months * Images: Billing Information: * Visit Code: 46795 Office Visit, Est Pt., Level 4. * Procedure Codes: G2211 Complex e/m visit add on. * Electronic signature of Ariana Lee MD on 02/23/2025 at 08:33 AM EST Sign off status: Pending * Provider: Seymour Lee M.D. Date: 0 10/29/2023 Generated for Smita carrasquillo/Annamaria/eTviksmitting on: 04/25/2024 08:33 AM EST History and Physical Notes * HPI (History of Present Illness) Category Sub-Category Detail Notes Category Not es Cardiology Blood Pressure Elevated Pt here to f/u on hypertension, states he is doing well and does not have any concerns Hyperlipidemia Pt is fasting today Examination Category Sub-Category Detail Notes Category Not es Cardiology Lungs: clear, no rales or wheezes Heart sounds: RRR, normal S1, S2 General Appearance: pleasant, NAD
--- OUTSIDE RECORDS SUMMARY | 2024-06-21 05:45 | XMS_ITS ---
Author Organization [facility] Address [address] [facility] [address] [place] [id number] Care Team Providers Care Manager Training And Development Name Role Phone Carl Lee Unavailable [phone] Allergies No Known Allergies Results Component Value Reference Range Notes X ray : Spine, lumbosacral Reviewed date:07/06/2024 11:06:27 AM Interpretation: Performing Lab: Notes/Report: X ray : Spine, cervical Reviewed date:07/06/2024 11:05:33 AM Interpretation: Performing Lab: Notes/Report: colonoscopy Reviewed date:10/02/2024 02:51:24 PM Interpretation:Colon polyps Performing Lab: Notes/Report: Colon polyps REASON FOR VISIT arm pain Medications Medication SIG (Take, Route, Frequency, Duration) Notes Start Date End Date Status Atenolol 25 MG 1 tab(s) orally once a day; Duration: 90 days Active Atorvastatin Calcium 40 MG 1 tab(s) oral ly once a day; Duration: 90 days Active Lisinopril 10 MG 1 tab(s) orally once a day; Duration: 90 days Active Celecoxib 200 MG 1 capsule Orally Onc e a day; Duration: 30 day(s) 06/21/2024 Active Famotidine 40 MG 1 tablet Orally Once a day; Duration: 30 day(s) 06/21/2024 Active Social History Tobacco Use: Social History Observation Description Date Details (start date - stop date) Current Smoker NA - NA CURRENT TOBACCO USE: Question Answer Notes Are you a: current smoker 1 PPD Problems Problem Type SNOMED Code ICD Code Onset Dates Problem Status W/U Status Risk Notes Problem Right cervical radiculopathy ([id number]) Right cervical radiculopathy (M54.12) Active confirmed Vital Signs Blood pressure systolic 114 mm Hg 06/22/19 25 Blood pressure diastolic 72 mm Hg 025 Heart Rate 93 /min 06/21/2024 Height 70 in 06/21/2024 Weight 203.3 lbs 06/21/2024 BMI 29.17 kg/m2 06/21/2024 Encounters Encounter Location Date Provider Diagnosis [facility] [address] [place], [place] [id number] 06/21/2024 Carl [place] Pain of right upper extremity M79.601 ; Right cervical radiculopathy M54.12 ; Low back pain, unspecified M54.50 ; Colon cancer screening Z12.11 and Hx of colonic polyps Z86.0100 Assessments Encounter Date Diagnosis (ICD Code) Assessment Notes Treatment Notes Treatment Clinical Notes Section Notes 06/21/2024 Pain of right upper extremity (ICD-10 - M79.601) 06/21/2024 Right cervical radiculopathy (ICD-10 - M54.12) 06/21/2024 Low back pain, unspecified (ICD-10 - M54.50) 06/21/2024 Colon cancer screening (ICD-10 - Z12.11) 06/21/2024 Hx of colonic polyps (ICD-10 - Z86.0100) Plan Of Treatment Medication Medication Name Sig Start Date Stop Date Notes Celecoxib 200 MG 1 capsule Orally Onc e a day; Duration: 30 day(s) 06/21/2024 Famotidine 40 MG 1 tablet Orally Once a day; Duration: 30 day(s) 06/21/2024 Naproxen 500 MG 1 tablet with food o r milk as needed Orally every 12 hrs Next Appt Details Follow Up: via phone to repo rt test results, Reason: Progress Notes * CHARLIE JEDOB:[birth year] (65 yo M)Acc No.[id number]:06/21/2024 Progress Notes Patient: JE CARNEY Provider: Seymour Lee M.D. :1960 A ge:64 Y S ex:Male Date:06/21/2024 Address:[address] [place] [address] [address] [id number] Subjective: * Chief Complaints: * 1 . Arm pain. * HPI: S houlder/Upper arm: 64 year old male presents with c/o shoulder pain P t complains of rt shoulder pain for about 5 weeks. Pt denies injury. Pt states he is able to move his arm normally. Pt states there is nothing specific that makes pain worse. * ROS: D ERMATOLOGY: no R dusty. [...] per day. Alcohol: no. * Medications: T aking Atenolol 25 MG Tablet 1 tab(s) orally once a day , Taking Lisinopril 10 MG Tablet 1 tab(s) orally once a day , Taking Atorvastatin Calcium 40 MG Tablet 1 tab(s) orally once a day , Taking Naproxen 500 MG Tablet 1 tablet with food or milk as needed Orally every 12 hrs , Medication List reviewed and reconciled with the patient * Allergies: N .K.D.A. Objective: * Vitals: W t:203.3, Temp:97.8, BP:114/72, HR:93, Nurse:chrissy, Ht: 70, BMI:29.17. * Examination: G eneral Examination: General Appearance: N AD. N jose: Vertebral spine tenderness: a bsent. P araspinal muscle spasm: a bsent bilaterally. R sina of motion of neck: n ormal in all directions, pain down into right arm with hyper extension. L ower back: Palpation: n o vertebral spine tenderness, no paraspinal spasm, no tenderness on SI joints. S traight leg raising test: n egative bilaterally. G ait: n ormal. Assessment: * Assessment: 1. P ain of right upper extremity - M79.601 (Primary) 2 . R ight cervical radiculopathy - M54.12 3 . L ow back pain, unspecified - M54.50 4 . C olon cancer screening - Z12.11 5 . H x of colonic polyps - Z86.0100? Plan: * Treatment: 2.?Low back pain, unspecified? Start Celecoxib Capsule, 200 MG, 1 capsule, Orally, Once a day, 30 day(s), 30 Capsule, Refills 0; Stop Naproxen Tablet, 500 MG, 1 tablet with food or milk as needed, Orally, every 12 hrs.?Imaging: X ray : Spine, lumbosacral (Performed Date - 06/21/2024)* Diane Schwarz 07/06/2024 11: 06:12 AM > see phone encounter 3.?Colon cancer screening?Imaging: colonoscopy (Performed Date - 08/31/2024)?Colon polyps* Carol Camarillo 06/21/2024 11:34: 21 AM > faxed to Carl Lopez T 10/02/2024 02:51:19 PM EDT > 4.?Hx of colonic polyps?Imaging: colonoscopy (Performed Date - 08/31/2024)?Colon polyps* Carol Camarillo 06/21/2024 11:34: 21 AM > faxed to Carl Lopez T 10/02/2024 02:51:19 PM EDT > 5.?Others? Start Famotidine Tablet, 40 MG, 1 tablet, Orally, Once a day, 30 day(s), 30 Tablet, Refills 0.?? * Procedure Codes: G 2211 Complex e/m visit add on, 3074F SYST BP LT 130 MM HG, 3078F DIAST BP < 80 MM HG * Follow Up: v ia phone to report test results * Images: Billing Information: * Visit Code: 27580 Office Visit, Est Pt., Level 4. * Procedure Codes: G2211 Complex e/m visit add on. 3074F SYST BP LT 130 MM HG. 3078F DIAST BP < 80 MM HG. * Electronic signature of Ariana Lee MD on 02/23/2025 at 08:34 AM EST Sign off status: Pending * Provider: Seymour Lee M.D. Date: 0 06/21/2024 Generated for Smita carrasquillo/Annamaria/Linda on: 1 04/25/2024 08:34 AM EST History and Physical Notes * HPI (History of Present Illness) Category Sub-Category Detail Notes Category Not es Shoulder/Upper arm shoulder pain Pt complains of rt shoulder pain for about 5 weeks. Pt denies injury. Pt states he is able to move his arm normally. Pt states there is nothing specific that makes pain worse Examination Category Sub-Category Detail Notes Category Not es General Examination General Appearance: NAD Neck Vertebral spine tenderness: absent Paraspinal muscle spasm: absent bilatera lly Range of motion of neck: normal in all d irections, pain down into right arm with hyper extension Lower back Straight leg raising test: negative bilat erally Gait: normal Palpation: no vertebral spine t enderness, no paraspinal spasm, no tenderness on SI joints
--- OUTSIDE RECORDS SUMMARY | 2024-07-18 04:00 | XMS_ITS ---
Author Organization [facility] Address [address] [facility] 36 [facility] [address] [id number] Care Team Providers Care Reciprocating Drill Operator Name Role Phone Rosa Carl Unavailable [phone] Allergies No Known Allergies REASON FOR VISIT f/u back pain Medications Medication SIG (Take, Route, Frequency, Duration) Notes Start Date End Date Status Lisinopril 10 MG 1 tab(s) orally once a day; Duration: 90 days Active Gabapentin 300 MG 1 capsule Orally Two times a day; Duration: 30 day(s) 07/18/2024 Active Celecoxib 200 MG 1 capsule Orally Onc e a day; Duration: 90 days 06/21/2024 Active Atorvastatin Calcium 40 MG 1 tab(s) oral ly once a day; Duration: 90 days Active Famotidine 40 MG 1 tablet Orally Once a day; Duration: 90 days 06/21/2024 Active Atenolol 25 MG 1 tab(s) orally once a day; Duration: 90 days Active Social History Tobacco Use: Social History Observation Description Date Details (start date - stop date) Current Smoker NA - NA CURRENT TOBACCO USE: Question Answer Notes Are you a: current smoker 1 PPD Vital Signs Blood pressure systolic 124 mm Hg 07/19/19 25 Blood pressure diastolic 80 mm Hg 025 Heart Rate 80 /min 07/18/2024 Height 70 in 07/18/2024 Weight 202.4 lbs 07/18/2024 BMI 29.04 kg/m2 07/18/2024 Encounters Encounter Location Date Provider Diagnosis [facility] [address] [facility] [address] [phone] 07/18/2024 Carl Lee Right cervical radiculopathy M54.12 ; Cervical disc disease M50.90 ; DDD (degenerative disc disease), cervical M50.30 ; Lumbar facet arthropathy M47.816 ; Primary hypertension I10 and Hyperlipidemia, unspecified hyperlipidemia type E78.5 Assessments Encounter Date Diagnosis (ICD Code) Assessment Notes Treatment Notes Treatment Clinical Notes Section Notes 07/18/2024 Right cervical radiculopathy (ICD-10 - M54.12) Current course of treatment reviewed, including pertinent labs and diagnostic imaging. Risks and benefits of the use of controlled substances discussed, including the risk of tolerance and drug dependence. Refer to [facility] Controlled Substance Agreement. 07/18/2024 Cervical disc disease (ICD-10 - M50.90) 07/18/2024 DDD (degenerative disc disease), cervical (ICD-10 - M50.30) 07/18/2024 Lumbar facet arthropathy (ICD-10 - M47.816) 07/18/2024 Primary hypertension (ICD-10 - I10) 07/18/2024 Hyperlipidemia, unspecified hyperlipidemia type (ICD-10 - E78.5) Plan Of Treatment Medication Medication Name Sig Start Date Stop Date Notes Lisinopril 10 MG 1 tab(s) orally once a day; Duration: 90 days Gabapentin 300 MG 1 capsule Orally Two times a day; Duration: 30 day(s) 07/18/2024 Celecoxib 200 MG 1 capsule Orally Onc e a day; Duration: 90 days 06/21/2024 Atorvastatin Calcium 40 MG 1 tab(s) oral ly once a day; Duration: 90 days Famotidine 40 MG 1 tablet Orally Once a day; Duration: 90 days 06/21/2024 Atenolol 25 MG 1 tab(s) orally once a day; Duration: 90 days Treatment Notes Assessment Notes Right cervical radiculopathy Current cou rse of treatment reviewed, including pertinent labs and diagnostic imaging. Risks and benefits of the use of controlled substances discussed, including the risk of tolerance and drug dependence. Refer to [facility] Controlled Substance Agreement. Next Appt Details Follow Up: via phone to repo rt test results, 4 Months, Reason: Progress Notes * JE GUERRADOB:[birth year] (65 yo M)Acc No.[id number]:07/18/2024 Patient: Ashwini JE WALDRON Provider: Seymour Lee M.D. :1960 A ge:64 Y S ex:Male Date:07/18/2024 Address[id number] Subjective: * Chief Complaints: * 1 . F/u back pain. * HPI: C ardiology: 64 year old male presents with c/o Blood Pressure Elevated P t here to f/u on hypertension, states he is doing well and does not have any concerns. c/o Hyperlipidemia P t is fasting today. H PI: c/o Patient is here today for P t requesting order for MRI of back. Pt states he called to reschedule but was told he needs a new order sent. His symptoms have not improved. * ROS: D ERMATOLOGY: no R dusty. [...] * Family History: M other: diagnosed with Hypertension, Cancer, Diabetes. * Social History: C URRENT TOBACCO USE: [...] tab(s) orally once a day , Taking Celecoxib 200 MG Capsule 1 capsule Orally Once a day , Taking Famotidine 40 MG Tablet 1 tablet Orally Once a day , Medication List reviewed and reconciled with the patient * Allergies: N .K.D.A. Objective: * Vitals: W t:202.4, Temp:97.8, BP:124/80, HR:80, Nurse:chrissy, Ht: 70, BMI:29.04. * Examination: G eneral Examination: General Appearance: N AD. H eart: R SR. L ungs:?clear to auscultation. N jose: Vertebral spine tenderness: a bsent. [...] ait: n ormal. Assessment: * Assessment: 1. R ight cervical radiculopathy - M54.12 (Primary) 2 . C ervical disc disease - M50.90 3 . D DD (degenerative disc disease), cervical - M50.30 ?4. L umbar facet arthropathy - M47.816 5 . P rimary hypertension - I10 6. H yperlipidemia, unspecified hyperlipidemia type - E78.5 Plan: * Treatment: 2. P rimary hypertension Refill Atenolol Tablet, 25 MG, 1 tab(s), orally, once a day, 90 days, 90, Refills 1; R efill Lisinopril Tablet, 10 MG, 1 tab(s), orally, once a day, 90 days, 90, Refills 1. 3. H yperlipidemia, unspecified hyperlipidemia type Refill Atorvastatin Calcium Tablet, 40 MG, 1 tab(s), orally, once a day, 90 days, 90, Refills 1.? 4. O thers Refill Famotidine Tablet, 40 MG, 1 tablet, Orally, Once a day, 90 days, 90, Refills 1. * Procedure Codes: G 2211 Complex e/m visit add on, 3074F SYST BP LT 130 MM HG, 3079F DIAST BP 80-89 MM HG * Follow Up: v ia phone to report test results, 4 Months * Images: Billing Information: * Visit Code: 98475 Office Visit, Est Pt., Level 4. * Procedure Codes: G2211 Complex e/m visit add on. 3074F SYST BP LT 130 MM HG. 3079F DIAST BP 80-89 MM HG. * Electronic signature of Ariana Lee MD on 02/23/2025 at 08:34 AM EST Sign off status: Pending * Provider: Seymour Lee M.D. Date: 0 07/18/2024 Generated for Smita carrasquillo/Annamaria/Linda on: 1 04/25/2024 08:34 AM EST History and Physical Notes * HPI (History of Present Illness) Category Sub-Category Detail Notes Category Not es Cardiology Blood Pressure Elevated Pt here to f/u on hypertension, states he is doing well and does not have any concerns Hyperlipidemia Pt is fasting today HPI Patient is here today for Pt req uesting order for MRI of back. Pt states he called to reschedule but was told he needs a new order sent. His symptoms have not improved Examination Category Sub-Category Detail Notes Category Not es General Examination Heart: RSR Lungs: clear to auscultatio n General Appearance: NAD Neck Vertebral spine tenderness: [...]
--- OUTSIDE RECORDS SUMMARY | 2024-08-23 05:45 | XMS_ITS ---
Author Organization [facility] Address [facility] [address] [place] [phone] Care Team Providers Care Efficiency Clerk Name Role Phone Carl Lee Unavailable [phone] REASON FOR VISIT GO OVER TEST RESULTS Encounters Encounter Location Date Provider Diagnosis [facility] [address] [place] [phone] 08/23/2024 Carl Lee Plan Of Treatment No Information Progress Notes * JE GUERRADOB:[birth year] (65 yo M)Acc No.[id number]:08/23/2024 Progress Notes Patient: JE CARNEY Provider: Seymour Lee M.D. :1960 A ge:64 Y S ex:Male Date:08/23/2024 Address:[facility] [address] [facility] Subjective: * Chief Complaints: * 1 . GO OVER TEST RESULTS. * Medical History: Objective: * Vitals: Assessment: Plan: * Treatment: * Images: Billing Information: * Visit Code: * Procedure Codes: * Electronic signature of Ariana Lee MD on 02/23/2025 at 08:34 AM EST Sign off status: Pending * Provider: Seymour Lee M.D. Date: 08/23/2024 Generated for Smita carrasquillo/Annamaria/Linda on: 1 04/25/2024 08:34 AM EST
--- OUTSIDE RECORDS SUMMARY | 2024-09-29 05:30 | XMS_ITS ---
Author Organization [facility] Address [address] [facility] [address] [facility] [address] [place] [id number] Care Team Providers Care Wreath Inspector Name Role Phone Carl Lee Unavailable [phone] Allergies No Known Allergies Reason For Referral Diagnosis 1 Cervical disc diseas e (M50.90) Diagnosis 2 DDD (degenerative di sc disease), cervical (M50.30) Diagnosis 3 Lumbar facet arthrop athy (M47.816) Diagnosis 4 Cervical radiculopat hy (M54.12) Referral Organization [facility] Referring Provider First Name Carl Referring Provider Last Name Rosa Referring Provider Speciality Family Pra ctice Referred Provider Toro Leon Referred Provider Specialty Pain Managem ent General Notes Carol Camarillo 2024 11:29:42 AM > faxed to [facility] Pain Management Referral Priority Routine REASON FOR VISIT Discuss MRI Medications Medication SIG (Take, Route, Frequency, Duration) Notes Start Date End Date Status Famotidine 40 MG 1 tablet Orally Once a day; Duration: 90 days 06/21/2024 Not-Viktoria ball Lisinopril 10 MG 1 tab(s) orally once a day; Duration: 90 days Active Atorvastatin Calcium 40 MG 1 tab(s) orally once a day; Duration: 90 days Active Gabapentin 300 MG 1 capsule Orally Two times a day; Duration: 30 day(s) 07/18/2024 Not-Taking Atenolol 25 MG 1 tab(s) orally once a day; Duration: 90 days Active Celecoxib 200 MG 1 capsule Orally Onc e a day; Duration: 90 days 06/21/2024 Noe ball Social History Tobacco Use: Social History Observation Description Date Details (start date - stop date) Current Smoker NA - NA CURRENT TOBACCO USE: Question Answer Notes Are you a: current smoker 1 PPD Problems Problem Type SNOMED Code ICD Code Onset Dates Problem Status W/U Status Risk Notes Problem Cervical radiculopathy (08971644) Cervical radiculopathy (M54.12) Active confirmed Vital Signs Blood pressure systolic 108 mm Hg 09/30/19 25 Blood pressure diastolic 68 mm Hg 025 Heart Rate 75 /min 09/29/2024 Height 70 in 09/29/2024 Weight 197.4 lbs 09/29/2024 BMI 28.32 kg/m2 09/29/2024 Encounters Encounter Location Date Provider Diagnosis [facility] [address] [place], [place] [id number] 09/29/2024 Carl Lee Low back pain, unspecified M54.50 ; Lumbar facet arthropathy M47.816 ; DDD (degenerative disc disease), cervical M50.30 ; Cervical radiculopathy M54.12 and BMI 28.0-28.9,adult Z68.28 Assessments Encounter Date Diagnosis (ICD Code) Assessment Notes Treatment Notes Treatment Clinical Notes Section Notes 09/29/2024 Low back pain, unspecified (ICD-10 - M54.50) 09/29/2024 Lumbar facet arthropathy (ICD-10 - M47.816) 09/29/2024 DDD (degenerative disc disease), cervical (ICD-10 - M50.30) 09/29/2024 Cervical radiculopathy (ICD-10 - M54.12) 09/29/2024 BMI 28.0-28.9,adult (ICD-10 - Z68.28) Plan Of Treatment Referrals Referral Date Details 09/29/2024 09/29/2024, Toro Mari x Next Appt Details Follow Up: 3 Months fasting, Reason: Progress Notes * JE GUERRADOB:[birth year] (65 yo M)Acc No.[id number]:09/29/2024 Progress Notes Patient: JE CARNEY Provider: Seymour Lee M.D. :1960 A ge:64 Y S ex:Male Date:09/29/2024 Address:[address] [place] [address] [place], [id number] Subjective: * Chief Complaints: * 1 . Discuss MRI. * HPI: U pper back: pain P t presents today to discuss the results of his MRI. Pt sts that he is not taking Gabapentin or Celecoxib any longer because it didn't help. * ROS: D ERMATOLOGY: no R dusty. n o H nely. G ASTROENTEROLOGY: no N ausea. n o V omiting. U ROLOGY: no D ifficulty urinating. n o B lood in urine. * Medical History: H ypertension, Hyperlipidemia, Pancreatitis, 04/2022, Alcoholism,Quit 04/2022, 50 Year Smoking History as of 2022, Colon Polyps, Lumbar Disc Disease, Lumbar facet arthropathy. * Surgical History: C olonoscopy 08/2024. * Hospitalization/Major Diagno stic Procedure: D enies Past Hospitalization. * Family History: M other: diagnosed with Cancer, Hypertension, Diabetes. * Social History: C URRENT TOBACCO [...] 1 tab(s) orally once a day , Not-Taking Famotidine 40 MG Tablet 1 tablet Orally Once a day , Not-Taking Celecoxib 200 MG Capsule 1 capsule Orally Once a day , Not-Taking Gabapentin 300 MG Capsule 1 capsule Orally Two times a day , Medication List reviewed and reconciled with the patient * Allergies: N .K.D.A. Objective: * Vitals: W t: 197.4, Temp: 98.1, BP: 108/68, HR: 75, Nurse: ANDRÉS, Ht: 70, BMI:28.32. * Examination: G eneral Examination: General Appearance: N AD. N eurologic Exam: g ait normal. Assessment: * Assessment: 1. L ow back pain, unspecified - M54.50 (Primary) 2 . L umbar facet arthropathy - M47.816 3 . D DD (degenerative disc disease), cervical - M50.30 ? 4 . C ervical radiculopathy - M54.12 5 . B [place] 28.0-28.9,adult - Z68.28 Plan: * Treatment: 2. D DD (degenerative disc disease), cervical Referral To:[facility] Reason: 3. C ervical radiculopathy Referral To:[facility] Reason: 4. O thers Referral To:[facility] Reason: * Procedure Codes: G 8420 BMI<30 AND >=22 CALC & DOCU, G8783 BP SCR PRFRM RCMDD DEFIND SCR INTVL, G8752 MOST RECENT SYSTOLIC BP < 140MM HG, G8754 MOST RECENT DIASTOLIC BP < 90MM HG * Follow Up: 3 Months fasting * Images: Billing Information: * Visit Code: 91446 Office Visit, Est Pt., Level 3. * Procedure Codes: G8420 BMI<30 AND >=22 CALC & DOCU. G8783 BP SCR PRFRM RCMDD DEFIND SCR INTVL. G8752 MOST RECENT SYSTOLIC BP < 140MM HG. G8754 MOST RECENT DIASTOLIC BP < 90MM HG. * Electronic signature of Ariana Lee MD on 02/23/2025 at 08:34 AM EST Sign off status: Pending * Provider: Seymour Lee M.D. Date: 0 09/29/2024 Generated for Smita carrasquillo/Annamaria/Singhitting on: 1 04/25/2024 08:34 AM EST History and Physical Notes * HPI (History of Present Illness) Category Sub-Category Detail Notes Category Not es Upper back pain Pt presents toda y to discuss the results of his MRI. Pt sts that he is not taking Gabapentin or Celecoxib any longer because it didn't help Examination Category Sub-Category Detail Notes Category Not es General Examination General Appearance: NAD Neurologic Exam: gait normal Consultation Request Notes Referral Date Referring Provider Referred Provider Not ricky 09/29/2024 Carl Lee, [facility]
--- OUTSIDE RECORDS SUMMARY | 2025-01-26 05:00 | XMS_ITS ---
Author Organization [facility] Address [address] [facility] [address] [place] [id number] Care Team Providers Care Court Operations Clerk Name Role Phone Carl Lee Unavailable [phone] Allergies No Known Allergies Results Component Value Reference Range Notes P-Comprehensive Metabolic Pa jessee (CMP) Reviewed date:01/27/2025 02:09:07 PM Interpretation:Normal Performing Lab: Notes/Report: Test performed by [email or web address] [address] [place], [place] [address] [address] , [address], [place] [address] Peng Farris MD, Litigation Coordinator CLIA: [id number] Sodium 138 135-145 mmol/L Potassium 4.6 3.5-5.3 mmol/L Chloride 103 97-108 mmol/L CO2 27 20-32 mmol/L Glucose 96 65-99 mg/dL BUN 9 8-23 mg/dL Creatinine 0.73 0.70-1.30 mg/dL Calcium 9.8 8.6-10.4 mg/dL eGFR by Creatinine 100 >59 mL/min/1.73m2 Protein 6.7 6.0-8.3 g/dL Albumin 4.3 3.5-5.3 g/dL Alkaline Phosphatase 71 40-129 IU/L ALT (SGPT) 19 <5-55 IU/L AST (SGOT) 22 <5-46 IU/L Bilirubin, Total 0.5 <0.2-1.2 mg/dL A/G Ratio 1.8 1.1-2.5 P-Lipid Panel Reviewed date:01/27/2025 02:09:07 PM Interpretation:Normal Performing Lab: Notes/Report: Test performed by [email or web address] [address] [facility] , [address], [place] [address] Peng Farris MD, Litigation Coordinator IA: [id number] Lipid Panel Footnote See Below *Based on optimal reference values. Please refer to the DOS for additional information regarding diagnostic lipid reference ranges, patient management based on the recently updated lipid guidelines ([place] [employer]/[place] [employer] Association Task Force on Clinical Practice Guidelines (2018), and pediatric diagnostic lipid reference values (<18 years old). Total Cholesterol 144 <200 mg/dL Triglycerides 55 <150 mg/dL HDL Cholesterol 70 >40 mg/dL Total Cholesterol / HDL Ratio* 2.06 <4.99 Ratio Non-HDL Cholesterol 74 <130 mg/dL LDL Cholesterol (Calculation) 63 <100 mg/dL LDL / HDL Ratio* 0.90 <2.49 Ratio LDL Cholesterol Patient History Test Date: 07/07/2022 LDL Results: 187 Units: mg/dL % Change: - Test Date: 10/29/2023 LDL Results: 70 Units: mg/dL % Change: -62% Test Date: 01/26/2025 LDL Results: 63 Units: mg/dL % Change: -10% P-PSA Reviewed date:01/27/2025 02:09:07 PM Interpretation:Normal Performing Lab: Notes/Report: Test performed by [email or web address] [address] [place], [place] [address] [address] , [facility], [place] [address] Peng Farris MD, Litigation Coordinator CLIA: [id number] PSA 1.48 <4.00 ng/mL Please note this is an ultrasensitive PSA assay with a lower limit of detection of 0.014 ng/mL. This test is performed by the Javy ECLIA methodology. Values obtained with different assay methods or kits cannot be directly compared. P-TSH reflex to FT4 Reviewed date:01/27/2025 02:09:07 PM Interpretation:Normal Performing Lab: Notes/Report: Test performed by [email or web address] [address] [place] [address] , [place] [address] Peng Farris MD, Litigation Coordinator CLIA: [id number] TSH reflex to FT4 1.05 0.43-5.25 mU/L P-Microalbumin/Creatinine, R andom Urine Sample Reviewed date:01/27/2025 02:09:07 PM Interpretation:Normal Performing Lab: Notes/Report: Test performed by [email or web address] [address] [place] [address] , [address], [place] [address] Peng Farris MD, Litigation Coordinator CLIA: [id number] Albumin/Creatinine Ratio, Urine 11 0-30 ug/mg Microalbumin, Urine, Random 1.4 Creatinine, Urine 132.3 REASON FOR VISIT refills Medications Medication SIG (Take, Route, Frequency, Duration) Notes Start Date End Date Status Naproxen 500 MG 1 tablet with food o r milk as needed Orally every 12 hrs 01/26/2025 Active Lisinopril 10 MG Take 1 tablet by sarahi th once daily; Duration: 90 Active Atorvastatin Calcium 40 MG Take 1 tablet by mouth once daily; Duration: 90 Active Famotidine 40 MG 1 tablet Orally Once a day; Duration: 30 days 01/26/2025 Active Atenolol 25 MG 1 tab(s) orally once a day; Duration: 90 days Active Social History Tobacco Use: Social History Observation Description Date Details (start date - stop date) Current Smoker NA - NA CURRENT TOBACCO USE: Question Answer Notes Are you a: current smoker 1 PPD Vital Signs Blood pressure systolic 112 mm Hg 01/27/20 25 Blood pressure diastolic 70 mm Hg 025 Heart Rate 77 /min 01/26/2025 Height 70 in 01/26/2025 Weight 190.6 lbs 01/26/2025 BMI 27.35 kg/m2 01/26/2025 Encounters Encounter Location Date Provider Diagnosis [facility] [address] [id number] 01/26/2025 Carl Lee Primary hypertension I10 ; Hyperlipidemia, unspecified hyperlipidemia type E78.5 ; Right cervical radiculopathy M54.12 ; Cervical disc disease M50.90 ; Weakness of right upper extremity R29.898 ; Screening for lung cancer Z12.2 ; Personal history of nicotine dependence Z87.891 ; Prostate cancer screening Z12.5 and BMI 27.0-27.9,adult Z68.27 Assessments Encounter Date Diagnosis (ICD Code) Assessment Notes Treatment Notes Treatment Clinical Notes Section Notes 01/26/2025 Primary hypertension (ICD-10 - I10) 01/26/2025 Hyperlipidemia, unspecified hyperlipidemia type (ICD-10 - E78.5) 01/26/2025 Right cervical radiculopathy (ICD-10 - M54.12) 01/26/2025 Cervical disc disease (ICD-10 - M50.90) 01/26/2025 Weakness of right upper extremity (ICD-10 - R29.898) 01/26/2025 Screening for lung cancer (ICD-10 - Z12.2) 01/26/2025 Personal history of nicotine dependence (ICD-10 - Z87.891) 01/26/2025 Prostate cancer screening (ICD-10 - Z12.5) 01/26/2025 BMI 27.0-27.9,adult (ICD-10 - Z68.27) Plan Of Treatment Medication Medication Name Sig Start Date Stop Date Notes Naproxen 500 MG 1 tablet with food o r milk as needed Orally every 12 hrs 01/26/2025 Famotidine 40 MG 1 tablet Orally Once a day; Duration: 30 days 01/26/2025 Pending Test Test Name Order Date MRI : Spine, Cervical, without contrast 01/26/2025 CT Scan : Chest, low dose 01/26/2025 Next Appt Details Follow Up: via phone to repo rt progress, Reason: Progress Notes * JE GUERRADOB:[birth year] (65 yo M)Acc No.[id number]:01/26/2025 Progress Notes Patient: JE CARNEY Provider: Seymour Lee M.D. :1960 A ge:64 Y S ex:Male Date:01/26/2025 Address:[address] [place], [place] [id number] Subjective: * Chief Complaints: * 1 . Refills. * HPI: C ardiology: 64 year old male presents with c/o Blood Pressure Elevated P t here for checkup on hypertension. Pt states he is doing well and does not have any concerns at this time. c/o Hyperlipidemia P t is fasting today. N jose: c/o radiation of pain P t complains of ongoing neck pain that radiates to rt shoulder. Pt states he tried to take Gabapentin but did not have relief, so he stopped taking it. He continues to have pain on the right side of the neck, into his right shoulder and arm. 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 * Medical History: H ypertension, Hyperlipidemia, Pancreatitis, [...] , Taking Atorvastatin Calcium 40 MG Tablet Take 1 tablet by mouth once daily , Taking Lisinopril 10 MG Tablet Take 1 tablet by mouth once daily , Discontinued Gabapentin 300 MG Capsule 1 capsule Orally Two times a day , Discontinued Famotidine 40 MG Tablet 1 tablet Orally Once a day , Discontinued Celecoxib 200 MG Capsule 1 capsule Orally Once a day , Medication List reviewed and reconciled with the patient * Allergies: N .K.D.A. Objective: * Vitals: W t: 190.6, Temp: 98.0, BP: 112/70, HR: 77, Nurse: chrissy, Ht: 70, BMI:27.35. * Examination: C ardiology: General Appearance: p leasant, NAD. H eart sounds: R RR, normal S1, S2. L ungs: c lear, no rales or wheezes. 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 E xtremities: n o leg edema. Assessment: * Assessment: 1. P rimary hypertension - I10 (Primary) 2 . H yperlipidemia, unspecified hyperlipidemia type - E78.5 3 . R ight cervical radiculopathy - M54.12 4 . C ervical disc disease - M50.90 5 . W eakness of right upper extremity - R29.898 6 . S creening for lung cancer - Z12.2 7 . P ersonal history of nicotine dependence - Z87.891 8 . P rostate cancer screening - Z12.5 9 . B AK 27.0-27.9,adult - Z68.27 Plan: * Treatment: Value Reference Range A /G Ratio 1.8 1.1-2.5 - * A lbumin 4.3 3.5-5.3 - g/dL * A lkaline Phosphatase 71 40-129 - IU/L * A LT (SGPT) 19 <5-55 - IU/L * A ST (SGOT) 22 <5-46 - IU/L * B ilirubin, Total 0.5 <0.2-1.2 - mg/dL * B UN 9 8-23 - mg/dL * C alcium 9.8 8.6-10.4 - mg/dL * C hloride 103 97-108 - mmol/L * C O2 27 20-32 - mmol/L * C reatinine 0.73 0.70-1.30 - mg/dL * G lucose 96 65-99 - mg/dL * P otassium 4.6 3.5-5.3 - mmol/L * S odium 138 135-145 - mmol/L * P rotein 6.7 6.0-8.3 - g/dL * e GFR by Creatinine 100 >59 - mL/min/1.73m2 * Iesha Self 01/27/2025 01:05 :06 PM EDT > LM for pt to return call Iesha Self 01/27/2025 02:08:59 PM EDT > Pt notified ?LAB: P-Microalbumin/Creatinine, Random Urine Sample (Collection Date & Time - 01/26/2025 10:00 AM)?Normal* Value Reference Range A lbumin/Creatinine Ratio, Urine 11 0-30 - ug /mg * C reatinine, Urine 132.3 - mg/dL * M icroalbumin, Urine, Random 1.4 - mg/dL * Iesha Self 01/27/2025 01:05 :06 PM EDT > LM for pt to return call Iesha Self 01/27/2025 02:08:59 PM EDT > Pt notified 2.?Hyperlipidemia, unspecified hyperlipidemia type?LAB: P-Comprehensive Metabolic Panel (CMP) (Collection Date & Time - 01/26/2025 10:00 AM)?Normal* Value Reference Range A /G Ratio 1.8 1.1-2.5 - * A lbumin 4.3 3.5-5.3 - g/dL * A lkaline Phosphatase 71 40-129 - IU/L * A LT (SGPT) 19 <5-55 - IU/L * A ST (SGOT) 22 <5-46 - IU/L * B ilirubin, Total 0.5 <0.2-1.2 - mg/dL * B UN 9 8-23 - mg/dL * C alcium 9.8 8.6-10.4 - mg/dL * C hloride 103 97-108 - mmol/L * C O2 27 20-32 - mmol/L * C reatinine 0.73 0.70-1.30 - mg/dL * G lucose 96 65-99 - mg/dL * P otassium 4.6 3.5-5.3 - mmol/L * S odium 138 135-145 - mmol/L * P rotein 6.7 6.0-8.3 - g/dL * e GFR by Creatinine 100 >59 - mL/min/1.73m2 * Iesha Self 01/27/2025 01:05 :06 PM EDT > LM for pt to return call Liana Selfira 01/27/2025 02:08:59 PM EDT > Pt notified ?LAB: P-Lipid Panel (Collection Date & Time - 01/26/2025 10:00 AM)?Normal* Value Reference Range C holesterol / HDL Ratio 2.06 <4.99 - Ratio * C holesterol 144 <200 - mg/dL * H DL Cholesterol 70 >40 - mg/dL * L DL Cholesterol (Calculation) 63 <100 - mg/d L * L DL/HDL Ratio 0.90 <2.49 - Ratio * N on-HDL Cholesterol 74 <130 - mg/dL * T riglycerides 55 <150 - mg/dL * L ipid Panel Footnote See Below - * Iesha Self 01/27/2025 01:05 :06 PM EDT > LM for pt to return call Liana Selfira 01/27/2025 02:08:59 PM EDT > Pt notified ?LAB: P-TSH reflex to FT4 (Collection Date & Time - 01/26/2025 10:00 AM)? Normal* Value Reference Range T SH reflex to FT4 1.05 0.43-5.25 - mU/L * Iesha Self 01/27/2025 01:05 :06 PM EDT > LM for pt to return call Liana Selfira 01/27/2025 02:08:59 PM EDT > Pt notified 3.?Right cervical radiculopathy? Start Naproxen Tablet, 500 MG, 1 tablet with food or milk as needed, Orally, every 12 hrs, 60, Refills 1.?Imaging: MRI : Spine, Cervical, without contrast* Carol Camarillo 01/27/2025 11: 11:34 AM EDT > faxed to [facility] Scheduling 4.?Cervical disc disease?Imaging: MRI : Spine, Cervical, without contrast* Carol Camarillo 01/27/2025 11: 11:34 AM EDT > faxed to [facility] Scheduling 5.?Weakness of right upper extremity?Imaging: MRI : Spine, Cervical, without contrast* Carol Camarillo 01/27/2025 11: 11:34 AM EDT > faxed to [facility] Scheduling 6.?Screening for lung cancer?Imaging: CT Scan : Chest, low dose* Carol Camarillo 01/27/2025 11: 11:51 AM EDT > faxed to [facility] Scheduling 7.?Personal history of nicotine dependence?Imaging: CT Scan : Chest, low dose* Carol Camarillo 01/27/2025 11: 11:51 AM EDT > faxed to [facility] Scheduling 8.?Prostate cancer screening?LAB: P-PSA (Collection Date & Time - 01/26/2025 10:00 AM)?Normal* Value Reference Range P SA 1.48 <4.00 - ng/mL * Iesha Self 01/27/2025 01:05 :06 PM EDT > LM for pt to return call Iesha Self 01/27/2025 02:08:59 PM EDT > Pt notified 9.?Others? Start Famotidine Tablet, 40 MG, 1 tablet, Orally, Once a day, 30 days, 30 Tablet, Refills 1.? * Procedure Codes: G 2211 Complex e/m visit add on, 1036F TOBACCO NON-USER, G8420 BMI<30 AND >=22 CALC & DOCU, G8950 PREHTN/HTN BP DOC INDCD F/U DOC, G8752 MOST RECENT SYSTOLIC BP < 140MM HG, G8754 MOST RECENT DIASTOLIC BP < 90MM HG, 3074F SYST BP LT 130 MM HG, 3078F DIAST BP < 80 MM HG * Follow Up: v ia phone to report progress * Images: Billing Information: * Visit Code: 78346 Office Visit, Est Pt., Level 4. * Procedure Codes: G2211 Complex e/m visit add on. 1036F TOBACCO NON-USER. G8420 BMI<30 AND >=22 CALC & DOCU. G8950 PREHTN/HTN BP DOC INDCD F/U DOC. G8752 MOST RECENT SYSTOLIC BP < 140MM HG. G8754 MOST RECENT DIASTOLIC BP < 90MM HG. 3074F SYST BP LT 130 MM HG. 3078F DIAST BP < 80 MM HG. * Electronic signature of Ariana Lee MD on 02/23/2025 at 08:33 AM EST Sign off status: Pending * Provider: Seymour Lee M.D. Date: Generated for Smita carrasquillo/Annamaria/Singhitting on: 04/25/2024 08:33 AM EST History and Physical Notes * HPI (History of Present Illness) Category Sub-Category Detail Notes Category Not es Cardiology Blood Pressure Elevated Pt here for checkup on hypertension. Pt states he is doing well and does not have any concerns at this time Hyperlipidemia Pt is fasting today Neck radiation of pain Pt complains o f ongoing neck pain that radiates to rt shoulder. Pt states he tried to take Gabapentin but did not have relief, so he stopped taking it. He continues to have pain on the right side of the neck, into his right shoulder and arm. 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
--- NOTE | 2025-02-23 08:27 | MR_ITS ---
FINAL REPORT TECHNIQUE: Multiplanar and multisequence imaging of the cervical spine was obtained. CLINICAL HISTORY: RT CERVICAL RADICULPATHY/SCREENING pain that radiates into right shoulder COMPARISON: None FINDINGS: Alignment is normal in the sagittal plane. Vertebral body height is preserved. Signal intensity within the substance of the spinal cord is normal. No acute bone marrow edema. No acute paraspinal abnormality. C2/3: A mild annular bulge is present. No focal disc herniation, central canal stenosis, or neural foraminal narrowing. C3/4: There is a left subarticular disc protrusion, with degenerative endplate changes and facet osteoarthropathy. Severe left neural foraminal narrowing is noted. C4/5: An annular bulge is present with degenerative endplate changes and facet osteoarthropathy. There is mild bilateral neural foraminal narrowing without significant canal stenosis. C5/6: An annular bulge is present with degenerative endplate changes and facet osteoarthropathy. There is mild canal stenosis and moderate bilateral neural foraminal narrowing. C6/7: An annular bulge is present with degenerative endplate changes and facet osteoarthropathy. There is mild canal stenosis and moderate bilateral neural foraminal narrowing. C7/T1: No focal disc herniation, central canal stenosis, or neural foraminal narrowing. IMPRESSION: C3-4 left subarticular disc protrusion, producing severe left neural foraminal narrowing. C5-6 and C6-7 moderate degenerative changes with mild canal stenosis and moderate bilateral neural foraminal narrowing. . Reviewed, Interpreted and Dictated by Chata Rhoades MD Transcribed by Eri Espana Authenticated and [facility]
--- OUTSIDE RECORDS SUMMARY | 2025-02-23 08:33 | XMS_ITS | Clinical Summary ---
Author Organization [facility] Address [address] [place] [address] Care Team Providers Care Outsole Scheduler Name Role Phone Maryjane Rhoades MD Primary [...] age to complete this topic Care Teams Outsole Scheduler Relationship Specialty Start Date End Date Maryjane Rhoades MD PCP - General Family Medicine 11/25/13
--- OUTSIDE RECORDS SUMMARY | 2025-02-23 08:33 | XMS_ITS | Patient Health Record ---
[facility] Address [address] [facility] [address] [place] [id number] Care Team Providers Care Systems Checkout Mechanic Name Role Phone Carl Lee Unavailable [phone] Allergies No Known Allergies Results Component Value Reference Range Notes P-Comprehensive Metabolic Pa jessee (CMP) Reviewed date:01/27/2025 02:09:07 PM Interpretation:Normal Performing Lab: Notes/Report: Test performed by [facility] [address] [place] [address] , [address], [place] [address] Peng Farris MD, [facility] CLIA: [id number] Sodium 138 135-145 mmol/L Potassium 4.6 3.5-5.3 [...] Interpretation:Normal Performing Lab: Notes/Report: Test performed by [facility] [address] [place] [address] , [place] [address] Peng Farris MD, [facility] HENRY: [id number] Lipid Panel Footnote See Below *Based on optimal reference values. Please refer to the DOS for additional information regarding diagnostic lipid reference ranges, patient management based on the recently updated lipid guidelines ([employer] Task Force on Clinical Practice [...] Interpretation:Normal Performing Lab: Notes/Report: Test performed by [facility] [address] [place], [place] [email or web address] [place] , [address], [place] [address] Peng Farris MD, [facility] CLIA: [id number] PSA 1.48 <4.00 ng/mL Please note this is an ultrasensitive PSA assay with a lower limit of detection of 0.014 ng/mL. This test is performed by the [employer] ECLIA methodology. Values obtained with different assay methods or kits cannot be directly compared. P-TSH reflex to FT4 Reviewed date:01/27/2025 02:09:07 PM Interpretation:Normal Performing Lab: Notes/Report: Test performed by [facility] [address] [place] [address] , [address], [place] [address] Peng Farris MD, [facility] CLIA: [id number] TSH reflex to FT4 1.05 0.43-5.25 mU/L P-Microalbumin/Creatinine, R andom Urine Sample Reviewed date:01/27/2025 02:09:07 PM Interpretation:Normal Performing Lab: Notes/Report: Test performed by [facility] [address] [place], [place] [email or web address] [place] , [address], [place] [address] Peng Farris MD, [facility] CLIA: [id number] Albumin/Creatinine Ratio, Urine 11 0-30 ug/mg Microalbumin, Urine, Random 1.4 Creatinine, Urine 132.3 colonoscopy Reviewed date:10/02/2024 02:51:24 PM Interpretation:Colon polyps Performing Lab: Notes/Report: Colon polyps X ray : Spine, cervical Reviewed date:07/06/2024 11:05:33 AM Interpretation: Performing Lab: Notes/Report: X ray : Spine, lumbosacral Reviewed date:07/06/2024 11:06:27 AM Interpretation: Performing Lab: Notes/Report: MRI : Spine, Lumbosacral, wi thout contrast Reviewed date:08/16/2024 09:33:30 AM Interpretation:Abnormal Performing Lab: Notes/Report: Abnormal MRI : Spine, Cervical, witho ut contrast Reviewed date:08/16/2024 09:33:41 AM Interpretation:insurance denied testing Performing Lab: Notes/Report: insurance denied testing Reason For Referral Diagnosis 1 Cervical disc [...] [place] 2024 11:29:42 AM > faxed to [facility] Pain Management Referral Priority Routine Medications Medication [...] by mouth once daily; Duration: 90 Active Social History Tobacco Use: Social History Observation Description Date Details (start date - stop date) Current Smoker NA - NA CURRENT TOBACCO USE: Question Answer Notes Are you a: current smoker 1 PPD Problems Problem Type SNOMED Code ICD Code Onset Dates Problem Status W/U Status Risk Notes Problem Arthropathy of lumbar facet joint (523773589) Lumbar facet arthropathy (M47.816) Active confirmed Problem Cervical radiculopathy (00565042) Cervical radiculopathy (M54.12) Active confirmed Problem Right cervical radiculopathy (10664426974427441 ) Right cervical radiculopathy (M54.12) Active confirmed Problem Chronic pain (92029610) Other chronic pain (G89.29) Active confirmed Problem Cervical disc disease (376141985) Cervical disc disease (M50.90) Active confirmed Problem Hyperlipidaemia (85123649) Hyperlipidemia, unspecified hyperlipidemia type (E78.5) Active confirmed Problem Cervical disc disorder (484148291) DDD (degenerative disc disease), cervical (M50.30) Active confirmed Problem Tobacco user (192018022) Cigarette nicotine dependence without complication (F17.210) Active confirmed Problem Primary hypertension (16920232) Primary hypertension (I10) Active confirmed Vital Signs Heart Rate 77 /min 01/26/2025 Blood pressure diastolic 70 mm Hg 01/26/2025 Height 70 in 01/26/2025 Blood pressure systolic 112 mm Hg 01/26/2025 Weight 190.6 lbs 01/26/2025 BMI 27.35 kg/m2 01/26/2025 Encounters Encounter Location Date Provider Diagnosis [place] [address] [id number] 06/21/2024 [place] Pain of right upper extremity M79.601 ; Right cervical radiculopathy M54.12 ; Low back pain, unspecified M54.50 ; Colon cancer screening Z12.11 and Hx of colonic polyps Z86.0100 [facility] [address] [id number] 07/18/2024 Carl [place] Right cervical radiculopathy M54.12 ; Cervical disc disease M50.90 ; DDD (degenerative disc disease), cervical M50.30 ; Lumbar facet arthropathy M47.816 ; Primary hypertension I10 and Hyperlipidemia, unspecified hyperlipidemia type E78.5 [facility] [address] [place], [place] [id number] 09/29/2024 Carl [place] Low back pain, unspecified M54.50 ; Lumbar facet arthropathy M47.816 ; DDD (degenerative disc disease), cervical M50.30 ; Cervical radiculopathy M54.12 and BMI 28.0-28.9,adult Z68.28 [place] [address] [place] [id number] 01/26/2025 Carl [place] Primary hypertension I10 ; Hyperlipidemia, unspecified hyperlipidemia type E78.5 ; Right cervical radiculopathy M54.12 ; Cervical disc disease M50.90 ; Weakness of right upper extremity R29.898 ; Screening for lung cancer Z12.2 ; Personal history of nicotine dependence Z87.891 ; Prostate cancer screening Z12.5 and BMI 27.0-27.9,adult Z68.27 [facility] [address] [place] [id number] 07/06/2024 Carl [place] Pain of right upper extremity M79.601 ; Right cervical radiculopathy M54.12 ; Cervical disc disease M50.90 ; DDD (degenerative disc disease), cervical M50.30 ; Low back pain, unspecified M54.50 ; Degeneration of intervertebral disc of lumbar region with discogenic back pain M51.360 and Lumbar facet arthropathy M47.816 [facility] [address] [place] [id number] 07/18/2024 Carl [place] [facility] [address] [place] [id number] 08/16/2024 [place] [facility] [address] [place] [id number] 10/18/2024 Carl [place] Right cervical radiculopathy M54.12 Assessments Encounter Date [...] of tolerance and drug dependence. Refer to [facility] Controlled Substance Agreement. 07/18/2024 Cervical disc disease (ICD-10 - M50.90) 09/29/2024 Lumbar facet arthropathy (ICD-10 - M47.816) 09/29/2024 Low back pain, unspecified (ICD-10 - M54.50) 10/18/2024 Right cervical radiculopathy (ICD-10 - M54.12) 01/26/2025 Hyperlipidemia, unspecified hyperlipidemia type (ICD-10 - E78.5) 01/26/2025 Primary hypertension (ICD-10 - I10) 01/26/2025 Right cervical radiculopathy (ICD-10 - M54.12) 09/29/2024 [...] M47.816) 09/29/2024 Cervical radiculopathy (ICD-10 - M54.12) 01/26/2025 Cervical disc disease (ICD-10 - M50.90) 01/26/2025 Weakness of right upper extremity (ICD-10 - R29.898) 09/29/2024 BMI 28.0-28.9,adult (ICD-10 - Z68.28) 07/18/2024 Primary hypertension (ICD-10 - I10) 07/06/2024 Low back pain, unspecified (ICD-10 - M54.50) 06/21/2024 Hx of colonic polyps (ICD-10 - Z86.0100) 07/06/2024 Degeneration of intervertebral disc of lumbar region with discogenic back pain (ICD-10 - M51.360) 07/18/2024 Hyperlipidemia, unspecified hyperlipidemia type (ICD-10 - E78.5) 01/26/2025 Screening for lung cancer (ICD-10 - Z12.2) 01/26/2025 Personal history of nicotine dependence (ICD-10 - Z87.891) 07/06/2024 Lumbar facet arthropathy (ICD-10 - M47.816) 01/26/2025 Prostate cancer screening (ICD-10 - Z12.5) 01/26/2025 BMI 27.0-27.9,adult (ICD-10 - Z68.27) Plan Of Treatment Pending Test Test Name Order Date MRI : Spine, Cervical, without contrast 01/26/2025 CT Scan : Chest, low dose 01/26/2025 Insurance Providers Payer Name Payer Address Payer Phone Subscriber Number Group Number Insured Name Patient Relationship to Insured Coverage Start Date Coverage End Date [employer] (MEDICAR E) [address] [address] [place] [address] [id number] JE GUERRA Self - patient is the insured Medical (General) History Medical History History ICD Code Hypertension Hyperlipidemia Pancreatitis, 04/2022 Alcoholism,Quit 04/2022 50 Year Smoking History as of 2022 Colon Polyps Lumbar Disc Disease Lumbar facet arthropathy Surgical History Surgery Date(Month/Year) Colonoscopy 08/2024
--- OUTSIDE RECORDS SUMMARY | 2025-02-23 08:34 | XMS_ITS | Clinical Summary ---
Author Organization [facility] Address [address] [place] [address] Care Team Providers Care Production Statistical Clerk Name Role Phone Historical, Centricity Primary Care [...] therelease of HIV test results or diagnoses. [id number] Active Problems Problem Noted Date Diagnosed [...] of Treatment Not on file Care Teams Production Statistical Clerk Relationship Specialty Start Date End Date Molina Martin PCP - General 10/14/05
--- NOTE | 2025-02-23 09:15 | CT_ITS ---
FINAL REPORT TECHNIQUE: Thin section axial images were obtained through the lungs using a low-dose technique per lung cancer screening protocol. Reconstruction images were obtained using the axial data. Exam was performed using dose reduction technique. This study was performed with techniques to keep radiation doses as low as reasonably achievable (ALARA). Individualized dose reduction techniques using automated exposure control or adjustment of mA and/or kV according to the patient's size were employed. CLINICAL HISTORY: SCREENING. SMOKER 1PPD FOR 50 YEARS. FAMILY HX LUNG CANCER COMPARISON: None FINDINGS: CTDLvol: 2.90 DLP: 112.03 Current smoker 50 pack year history Lungs: Changes of emphysema are present. There is a right lower lobe nodule, 9 x 7 x 6 mm in size, best seen on image #53 of series 4. No other nodules are identified. Lymph nodes: No thoracic lymphadenopathy. Mediastinum: Heart size is normal. Pleura/pericardium: No pleural or pericardial effusion. Other: There are hypodense lesions in the liver, likely hepatic cysts. IMPRESSION: Right lower lobe nodule, 9 x 7 x 6 mm in size as described. Lung RADS: 4A Recommendation: 3-month follow-up CT or PET/CT is recommended for further evaluation. Reviewed, Interpreted and Dictated by Chata Rhoades MD Transcribed by Eri [place] Authenticated and [facility]
== END 2025-02-23 23:59 | disposition home or self-care (01) ==
LOC: RAD 08:25
PROVIDERS: PCP Family Medicine; Visit Provider Family Medicine
DX: R91.1 Solitary pulmonary nodule (principal); M50.21 Other cervical disc displacement, high cervical region; M47.812 Spondylosis without myelopathy or radiculopathy, cervical region; M48.02 Spinal stenosis, cervical region; M99.71 Connective tissue and disc stenosis of intervertebral foramina of cervical region; Z12.2 Encounter for screening for malignant neoplasm of respiratory organs; Z87.891 Personal history of nicotine dependence
CPT/HCPCS: 71271; 72141